=== PATIENT | male | born 1965 | race Caucasian/White ===

== ENCOUNTER 2017-11-28 12:32 | Inpatient (IN) | payer BC, MEDICAID ==
[2017-11-28] MEDS ORDERED: Sodium Chloride 0.9% 1,000 ML IV ONE ×2 (12:44→14:11)
[2017-11-28] MEDS ORDERED: Ondansetron 4 MG/2 ML SDV IVPUSH ONE (12:44)
--- NOTE | 2017-11-28 12:53 | EDM.PDOC ---
ED HPI GENERAL MEDICAL PROBLEM - General Stated Complaint: HIGH BLOOD SUGAR Time Seen by Provider: 11/28/17 12:32 Source of Information: Reports: Patient, EMS, Family History Limitations: Reports: Physical Impairment - History of Present Illness INITIAL COMMENTS - FREE TEXT/NARRATIVE: 51 y.o.w.m came to the ED by EMS after he felt dizzy and lightheaded at the clinic when he underwent an I&D at his left thumb. BS was above 600. Pt was nauseated and was transferred to the ed. Pt was never Dx'd with Diabetes. He is a poor historian and no family was present. Pt vomited in the ambulance, coming to the ED. BP was 119/70 pulse 100 Temp 36.9 RR 16 Pulse ox 98% on RA. Onset Date: 11/28/17 Onset Time: 05:00 Duration: Hour(s): Location: Reports: Upper Extremity, Left Quality: Reports: Burning Severity: Moderate Improves with: Reports: Rest Worsens with: Reports: Movement Context: Reports: Trauma (abscess left thumb, I&D'd in the clinic) Associated Symptoms: Reports: Confusion, Loss of Appetite, Malaise, Nausea/ Vomiting, Weakness - Related Data Allergies Allergy/AdvReac Type Severity Reaction Status Date / Time No Known Allergies Allergy Verified 11/28/17 12:58 Home Meds: Home Meds Ondansetron HCl [Zofran] 4 mg PO Q6H PRN 11/28/17 [History] Sulfamethoxazole/Trimethoprim [Bactrim Ds Tablet] 1 tab PO BID PRN 11/28/17 [ History] Past Medical History - Past Health History Medical/Surgical History: Denies Medical/Surgical History Social & Family History - Tobacco Use Smoking Status *Q: Current Every Day Smoker Years of Tobacco use: 10 - Recreational Drug Use Recreational Drug Use: No ED ROS GENERAL - Review of Systems Review Of Systems: Unable To Obtain ED EXAM, GENERAL - Physical Exam Exam: See Below Exam Limited By: Physical Impairment General Appearance: Alert, WD/WN, Moderate Distress Eye Exam: Bilateral Eye: Normal Inspection Ears: Normal External Exam Ear Exam: Bilateral Ear: Auricle Normal Nose: Normal Inspection Throat/Mouth: Normal Gums, No Airway Compromise, Other (dry mucosal membranes) Head: Atraumatic, Normocephalic Neck: Normal Inspection, Supple Respiratory/Chest: No Respiratory Distress, Lungs Clear Cardiovascular: Normal Peripheral Pulses Peripheral Pulses: 1+: Brachial (L) GI/Abdominal: Normal Bowel Sounds (Male) Exam: Deferred Rectal (Males) Exam: Deferred Back Exam: Normal Inspection, Full Range of Motion Extremities: Normal Inspection, Other (I&D left thumb at the clinic today) Neurological: Alert, CN II-XII Intact, Abnormal Gait (too week) Psychiatric: Normal Affect, Normal Mood Skin Exam: Warm, Dry, Other (left thumb surgery today) Lymphatic: No Adenopathy Course - Vital Signs Text/Narrative:: 51 y.o.w.m came to the ED by EMS after he felt dizzy and lightheaded at the clinic when he underwent an I&D at his left thumb. BS was above 600. Pt was nauseated and was transferred to the ed. Pt was never Dx'd with Diabetes. He is a poor historian and no family was present. Pt vomited in the ambulance, coming to the ED. BP was 119/70 pulse 100 Temp 36.9 RR 16 Pulse ox 98% on RA. PE: WNWD WM with nausea and vomiting, poor historian. S/P I&D left thumb Labs; WBC 22K pH 7.39 HCO2 8. Glc 589 BUN 29 Cr 1.1 Na 138 K 3.8 GFR 48 Lactic acid 2.9 GKC A1C 11.1 Impression: DKA, Dehydration, r thumb abscess (I&D'd today) Tx: Insulin, Abx, NS 2.20pm Consultation: Dr. Frost, Hospitalist: Accepted the pt for admission to ICU Plan; Admit to ICU Last Recorded V/S: Last Vital Signs Temp 36.8 C 11/29/17 00:00 Pulse 97 11/29/17 00:00 Resp 16 11/29/17 00:00 BP 118/74 11/29/17 00:00 Pulse Ox 100 11/29/17 00:00 - Orders/Labs/Meds Orders: Active Orders 24 hr Category Date Time Status Diabetes Education [RC] Click to Edit Care 11/28/17 14:02 Active Vital Signs [RC] Q4HR Care 11/28/17 14:02 Active CULTURE BLOOD [BC] Urgent Lab 11/28/17 14:20 Received CULTURE BLOOD [BC] Urgent Lab 11/28/17 14:50 Received Insulin Regular, Human [HumuLIN R] 100 unit Med 11/28/17 14:00 Active Sodium Chloride 0.9% [Normal Saline] 99 ml IV TITRATE Blood Culture x2 Reflex Set [OM.PC] Urgent Oth 11/28/17 14:10 Ordered Medication Orders Ceftriaxone Sodium (Rocephin) 1,000 mg IV Q24H AZIZA Last Admin: 11/28/17 20:46 Dose: 1,000 mg Insulin Human Regular 100 unit (/ Sodium Chloride) 100 mls @ 7.54 mls/hr IV TITRATE AZIZA; 0.1 UNITS/KG/HR PRN Reason: Protocol Last Titration: 11/28/17 21:22 Dose: 0.03 units/kg/hr, 3 mls/hr Titration: 11/28/17 15:46 Dose: 0.06 units/kg/hr, 5 mls/hr Titration: 11/28/17 15:10 Dose: 0.1 units/kg/hr, 7.54 mls/hr Admin: 11/28/17 14:52 Dose: 0.1 units/kg/hr, 11.33 mls/hr Potassium Chloride/Dextrose/Sod Cl (D5 1/2 Ns W/ 10 Meq/L Kcl) 1,000 mls @ 150 mls/hr IV ASDIRECTED AZIZA Last Admin: 11/28/17 22:43 Dose: 150 mls/hr Labs: Laboratory Tests 11/28/17 11/28/17 11/28/17 Range/Units 12:40 12:40 12:40 WBC 22.9 H (4.5-12.0) X10-3/uL RBC 5.33 (4.30-5.75) x10(6)uL Hgb 15.4 (11.5-15.5) g/dL Hct 45.4 (30.0-51.3) % MCV 85.3 (80-96) fL MCH 28.9 (27.7-33.6) pg MCHC 33.8 (32.2-35.4) g/dL RDW 12.5 (11.5-15.5) % Plt Count 198 (125-369) X10(3)uL MPV 11.1 H (7.4-10.4) fL Add Manual Diff Yes Neutrophils % (Manual) 91 H (46-82) % Band Neutrophils % 2 (0-6) % Lymphocytes % (Manual) 2 L (13-37) % Monocytes % (Manual) 5 (4-12) % POC VBG pH 7.14 L (7.31-7.41) POC VBG pCO2 18.1 L (41-51) mmHG POC VBG HCO3 6.2 L (23-28) mmol/L POC VBG Total CO2 7 L (24-29) mmol/L POC VBG Base Excess -23 L (-2-3) mmol/L Sodium 132 L (135-145) mmol/L Potassium 5.3 (3.5-5.3) mmol/L Chloride 93 L (100-110) mmol/L Carbon Dioxide 6 L* (21-32) mmol/L BUN 29 H (7-18) mg/dL Creatinine 1.9 H (0.70-1.30) mg/dL Est Cr Clr Drug Dosing TNP Estimated GFR (MDRD) 38 L (>60) BUN/Creatinine Ratio 15.3 (9-20) Glucose 713 H* (80-116) mg/dL Hemoglobin A1c (4.5-6.2) % Lactic Acid (0.4-2.2) mmol/L Calcium 9.9 (8.6-10.2) mg/dL Urine Ketones (NEGATIVE) mg/dL 11/28/17 11/28/17 11/28/17 Range/Units 13:00 13:00 13:45 WBC (4.5-12.0) X10-3/uL RBC (4.30-5.75) x10(6)uL Hgb (11.5-15.5) g/dL Hct (30.0-51.3) % MCV (80-96) fL MCH (27.7-33.6) pg MCHC (32.2-35.4) g/dL RDW (11.5-15.5) % Plt Count (125-369) X10(3)uL MPV (7.4-10.4) fL Add Manual Diff Neutrophils % (Manual) (46-82) % Band Neutrophils % (0-6) % Lymphocytes % (Manual) (13-37) % Monocytes % (Manual) (4-12) % POC VBG pH (7.31-7.41) POC VBG pCO2 (41-51) mmHG POC VBG HCO3 (23-28) mmol/L POC VBG Total CO2 (24-29) mmol/L POC VBG Base Excess (-2-3) mmol/L Sodium (135-145) mmol/L Potassium (3.5-5.3) mmol/L Chloride (100-110) mmol/L Carbon Dioxide (21-32) mmol/L BUN (7-18) mg/dL Creatinine (0.70-1.30) mg/dL Est Cr Clr Drug Dosing Estimated GFR (MDRD) (>60) BUN/Creatinine Ratio (9-20) Glucose (80-116) mg/dL Hemoglobin A1c 11.1 H (4.5-6.2) % Lactic Acid 2.9 H (0.4-2.2) mmol/L Calcium (8.6-10.2) mg/dL Urine Ketones 50 H (NEGATIVE) mg/dL Meds: Medications Generic Name Dose Route Start Last Admin Trade Name Freq PRN Reason Stop Dose Admin Ceftriaxone Sodium 1,000 mg 11/28/17 21:00 11/28/17 20:46 Rocephin IV 1,000 mg Q24H AZIZA Administration Insulin Human Regular 100 unit 100 mls @ 7.54 mls/hr 11/28/17 14:00 11/28/17 21:22 / Sodium Chloride IV 0.03 units/kg/hr TITRATE AZIZA 3 mls/hr Protocol Titration 0.1 UNITS/KG/HR Potassium Chloride/Dextrose/Sod Cl 1,000 mls @ 150 mls/hr 11/28/17 22:30 11/14 22:43 D5 1/2 Ns W/ 10 Meq/L Kcl IV 150 mls/hr ASDIRECTED AZIZA Administration Discontinued Medications Generic Name Dose Route Start Last Admin Trade Name Freq PRN Reason Stop Dose Admin Sodium Chloride 1,000 mls @ 999 mls/hr 11/28/17 12:44 11/28/17 13:12 Normal Saline IV 11/28/17 13:44 999 mls/hr .BOLUS ONE Administration Sodium Chloride 1,000 mls @ 999 mls/hr 11/28/17 14:11 11/28/17 14:17 Normal Saline IV 11/28/17 15:11 999 mls/hr .BOLUS ONE Administration Sodium Chloride 1,000 mls @ 250 mls/hr 11/28/17 14:15 11/28/17 15:20 Normal Saline IV 125 mls/hr ASDIRECTED AZIZA Administration Sodium Chloride 1,000 mls @ 250 mls/hr 11/28/17 15:51 Normal Saline IV ASDIRECTED AZIZA Ceftriaxone Sodium 1,000 mg/ 50 mls @ 100 mls/hr 11/28/17 19:30 Sodium Chloride IV Q24H AZIZA Sodium Chloride 1,000 mls @ 200 mls/hr 11/28/17 19:45 11/28/17 19:55 Normal Saline IV 200 mls/hr ASDIRECTED AZIZA Administration Insulin Human Regular 10 unit 11/28/17 13:53 11/28/17 14:06 Humulin R IVPUSH 11/28/17 13:54 10 units ONETIME STA Administration Protocol Ondansetron HCl 8 mg 11/28/17 12:44 11/28/17 13:15 Zofran IVPUSH 11/28/17 12:45 8 mg ONETIME ONE Administration Departure - Departure Time of Disposition: 20:00 Disposition: Admitted As Inpatient 67 Condition: Fair Clinical Impression: DKA (diabetic ketoacidoses) - Discharge Information - My Orders Last 24 Hours: My Active Orders 11/28/17 14:00 Insulin Regular, Human [HumuLIN R] 100 unit Sodium Chloride 0.9% [Normal Saline] 99 ml IV TITRATE 11/28/17 14:02 Diabetes Education [RC] Click to Edit Vital Signs [RC] Q4HR 11/28/17 14:10 Blood Culture x2 Reflex Set [OM.PC] Urgent 11/28/17 14:20 CULTURE BLOOD [BC] Urgent 11/28/17 14:50 CULTURE BLOOD [BC] Urgent - Assessment/Plan Last 24 Hours: My Active Orders 11/28/17 14:00 Insulin Regular, Human [HumuLIN R] 100 unit Sodium Chloride 0.9% [Normal Saline] 99 ml IV TITRATE 11/28/17 14:02 Diabetes Education [RC] Click to Edit Vital Signs [RC] Q4HR 11/28/17 14:10 Blood Culture x2 Reflex Set [OM.PC] Urgent 11/28/17 14:20 CULTURE BLOOD [BC] Urgent 11/28/17 14:50 CULTURE BLOOD [BC] Urgent
[2017-11-28] MEDS ORDERED: Insulin Regular, Human 100 Units/ML 3 ML Vial IVPUSH STA (13:53)
[2017-11-28] MEDS ORDERED: Sodium Chloride 0.9% 1,000 ML IV SCH ×3 (14:15→19:45)
[2017-11-28] MEDS ORDERED: cefTRIAXone 1,000 MG in Sodium Chloride 0.9% 50 ML IV SCH (19:30)
[2017-11-28] MEDS: cefTRIAXone 1,000 MG VIAL IV SCH (20:46)
[2017-11-28] MEDS: D5 1/2 NS w/ 10 mEq/L KCl 1,000 ML IV SCH (22:43)
[2017-11-29] MEDS: D5 1/2 NS w/ 10 mEq/L KCl 1,000 ML IV SCH (05:29)
[2017-11-29] MEDS ORDERED: D5 1/2 NS w/ 20 mEq/L KCl 1,000 ML IV SCH (06:00)
--- NOTE | 2017-11-29 09:03 | PCM.PN ---
- General Info Date of Service: 11/29/17 Admission Dx/Problem (Free Text): Patient was admitted because of DKA. Is never been no diabetes that presents to the clinic for incision and drainage of an abscess in the left thumb. While there,he complained of recent weight loss, polyuria,vomiting nausea dizziness. Was admitted with a high blood sugar very high anion gap and a pH of 7.14 but patient was alert Subjective Update: Overnight patient has done well he's been on an insulin. He denies nausea vomiting or headache. He complains of decreased hearing. - Review of Systems Pulmonary: Reports: No Symptoms Genitourinary: Reports: No Symptoms Musculoskeletal: Reports: No Symptoms - Patient Data Vitals - Most Recent: Last Vital Signs Temp 99.5 F 11/29/17 08:00 Pulse 93 11/29/17 08:00 Resp 18 11/29/17 08:00 BP 124/73 11/29/17 08:00 Pulse Ox 95 11/29/17 08:00 Weight - Most Recent: 79.968 kg I&O - Last 24 Hours: Intake & Output 11/28/17 11/29/17 11/29/17 22:59 06:59 14:59 Intake Total 2254 2426 Output Total 850 450 Balance 1404 1976 Lab Results Last 24 Hours: Laboratory Results - last 24 hr 11/28/17 11/28/17 11/28/17 Range/Units 14:20 15:31 16:20 ABG pH (7.35-7.45) ABG pCO2 (35-45) mmHg ABG pO2 (83-108) mmHg ABG HCO3 (22-26) mmol/L ABG O2 Saturation (96-97) % ABG Base Excess (-2-2) Thomas Test O2 Delivery Device Sodium 139 143 (135-145) mmol/L Potassium 4.5 3.9 (3.5-5.3) mmol/L Chloride 100 D 107 D (100-110) mmol/L Carbon Dioxide 8 L* 12 L (21-32) mmol/L BUN 29 H 26 H (7-18) mg/dL Creatinine 1.7 H 1.5 H (0.70-1.30) mg/dL Est Cr Clr Drug Dosing 55.50 62.90 mL/min Estimated GFR (MDRD) 43 L 50 L (>60) BUN/Creatinine Ratio 17.1 17.3 (9-20) Glucose 572 H* D 341 H D (80-116) mg/dL POC Glucose 335 H (80-116) mg/dL Calcium 9.3 8.9 (8.6-10.2) mg/dL Phosphorus 4.0 (2.6-4.6) mg/dL Magnesium 2.6 H (1.8-2.5) mg/dL Urine Opiates Screen (NEGATIVE) Ur Oxycodone Screen (NEGATIVE) Ur Propoxyphene Screen (NEGATIVE) Ur Barbituates Screen (NEGATIVE) Ur Tricyclics Screen (NEGATIVE) Ur Phencyclidine Scrn (NEGATIVE) Ur Amphetamine Screen (NEGATIVE) Urine MDMA Screen (NEGATIVE) U Benzodiazepines Scrn (NEGATIVE) U Cocaine Metab Screen (NEGATIVE) U Marijuana (THC) Screen (NEGATIVE) 11/28/17 11/28/17 11/28/17 Range/Units 16:23 17:49 19:01 ABG pH (7.35-7.45) ABG pCO2 (35-45) mmHg ABG pO2 (83-108) mmHg ABG HCO3 (22-26) mmol/L ABG O2 Saturation (96-97) % ABG Base Excess (-2-2) Thomas Test O2 Delivery Device Sodium (135-145) mmol/L Potassium (3.5-5.3) mmol/L Chloride (100-110) mmol/L Carbon Dioxide (21-32) mmol/L BUN (7-18) mg/dL Creatinine (0.70-1.30) mg/dL Est Cr Clr Drug Dosing mL/min Estimated GFR (MDRD) (>60) BUN/Creatinine Ratio (9-20) Glucose (80-116) mg/dL POC Glucose 335 H 239 H D 219 H (80-116) mg/dL Calcium (8.6-10.2) mg/dL Phosphorus (2.6-4.6) mg/dL Magnesium (1.8-2.5) mg/dL Urine Opiates Screen (NEGATIVE) Ur Oxycodone Screen (NEGATIVE) Ur Propoxyphene Screen (NEGATIVE) Ur Barbituates Screen (NEGATIVE) Ur Tricyclics Screen (NEGATIVE) Ur Phencyclidine Scrn (NEGATIVE) Ur Amphetamine Screen (NEGATIVE) Urine MDMA Screen (NEGATIVE) U Benzodiazepines Scrn (NEGATIVE) U Cocaine Metab Screen (NEGATIVE) U Marijuana (THC) Screen (NEGATIVE) 11/28/17 11/28/17 11/28/17 Range/Units 20:05 20:10 20:17 ABG pH 7.39 (7.35-7.45) ABG pCO2 26 L (35-45) mmHg ABG pO2 72 L (83-108) mmHg ABG HCO3 15 L (22-26) mmol/L ABG O2 Saturation 95 L (96-97) % ABG Base Excess -7.7 L (-2-2) Thomas Test Passed O2 Delivery Device Room air Sodium 146 H (135-145) mmol/L Potassium 3.8 (3.5-5.3) mmol/L Chloride 112 H D (100-110) mmol/L Carbon Dioxide 20 L (21-32) mmol/L BUN 23 H (7-18) mg/dL Creatinine 1.4 H (0.70-1.30) mg/dL Est Cr Clr Drug Dosing 67.33 mL/min Estimated GFR (MDRD) 54 L (>60) BUN/Creatinine Ratio 16.4 (9-20) Glucose 208 H D (80-116) mg/dL POC Glucose 189 H (80-116) mg/dL Calcium 8.8 (8.6-10.2) mg/dL Phosphorus (2.6-4.6) mg/dL Magnesium (1.8-2.5) mg/dL Urine Opiates Screen (NEGATIVE) Ur Oxycodone Screen (NEGATIVE) Ur Propoxyphene Screen (NEGATIVE) Ur Barbituates Screen (NEGATIVE) Ur Tricyclics Screen (NEGATIVE) Ur Phencyclidine Scrn (NEGATIVE) Ur Amphetamine Screen (NEGATIVE) Urine MDMA Screen (NEGATIVE) U Benzodiazepines Scrn (NEGATIVE) U Cocaine Metab Screen (NEGATIVE) U Marijuana (THC) Screen (NEGATIVE) 11/28/17 11/28/17 11/28/17 Range/Units 21:15 22:16 22:52 ABG pH (7.35-7.45) ABG pCO2 (35-45) mmHg ABG pO2 (83-108) mmHg ABG HCO3 (22-26) mmol/L ABG O2 Saturation (96-97) % ABG Base Excess (-2-2) Thomas Test O2 Delivery Device Sodium (135-145) mmol/L Potassium (3.5-5.3) mmol/L Chloride (100-110) mmol/L Carbon Dioxide (21-32) mmol/L BUN (7-18) mg/dL Creatinine (0.70-1.30) mg/dL Est Cr Clr Drug Dosing mL/min Estimated GFR (MDRD) (>60) BUN/Creatinine Ratio (9-20) Glucose (80-116) mg/dL POC Glucose 167 H 131 H (80-116) mg/dL Calcium (8.6-10.2) mg/dL Phosphorus (2.6-4.6) mg/dL Magnesium (1.8-2.5) mg/dL Urine Opiates Screen Negative (NEGATIVE) Ur Oxycodone Screen Negative (NEGATIVE) Ur Propoxyphene Screen Negative (NEGATIVE) Ur Barbituates Screen Negative (NEGATIVE) Ur Tricyclics Screen Negative (NEGATIVE) Ur Phencyclidine Scrn Negative (NEGATIVE) Ur Amphetamine Screen Negative (NEGATIVE) Urine MDMA Screen Negative (NEGATIVE) U Benzodiazepines Scrn Negative (NEGATIVE) U Cocaine Metab Screen Negative (NEGATIVE) U Marijuana (THC) Screen Negative (NEGATIVE) 11/28/17 11/29/17 11/29/17 Range/Units 23:14 00:05 04:05 ABG pH (7.35-7.45) ABG pCO2 (35-45) mmHg ABG pO2 (83-108) mmHg ABG HCO3 (22-26) mmol/L ABG O2 Saturation (96-97) % ABG Base Excess (-2-2) Thomas Test O2 Delivery Device Sodium 146 H 142 (135-145) mmol/L Potassium 3.8 3.4 L (3.5-5.3) mmol/L Chloride 114 H 110 (100-110) mmol/L Carbon Dioxide 20 L 21 (21-32) mmol/L BUN 20 H 19 H (7-18) mg/dL Creatinine 1.2 1.1 (0.70-1.30) mg/dL Est Cr Clr Drug Dosing 78.55 85.69 mL/min Estimated GFR (MDRD) > 60 > 60 (>60) BUN/Creatinine Ratio 16.7 17.3 (9-20) Glucose 164 H 182 H (80-116) mg/dL POC Glucose 145 H (80-116) mg/dL Calcium 8.6 8.5 L (8.6-10.2) mg/dL Phosphorus (2.6-4.6) mg/dL Magnesium (1.8-2.5) mg/dL Urine Opiates Screen (NEGATIVE) Ur Oxycodone Screen (NEGATIVE) Ur Propoxyphene Screen (NEGATIVE) Ur Barbituates Screen (NEGATIVE) Ur Tricyclics Screen (NEGATIVE) Ur Phencyclidine Scrn (NEGATIVE) Ur Amphetamine Screen (NEGATIVE) Urine MDMA Screen (NEGATIVE) U Benzodiazepines Scrn (NEGATIVE) U Cocaine Metab Screen (NEGATIVE) U Marijuana (THC) Screen (NEGATIVE) 11/29/17 Range/Units 08:00 ABG pH (7.35-7.45) ABG pCO2 (35-45) mmHg ABG pO2 (83-108) mmHg ABG HCO3 (22-26) mmol/L ABG O2 Saturation (96-97) % ABG Base Excess (-2-2) Thomas Test O2 Delivery Device Sodium 140 (135-145) mmol/L Potassium 3.3 L (3.5-5.3) mmol/L Chloride 108 (100-110) mmol/L Carbon Dioxide 21 (21-32) mmol/L BUN 17 (7-18) mg/dL Creatinine 1.0 (0.70-1.30) mg/dL Est Cr Clr Drug Dosing 97.00 mL/min Estimated GFR (MDRD) > 60 (>60) BUN/Creatinine Ratio 17.0 (9-20) Glucose 182 H (80-116) mg/dL POC Glucose (80-116) mg/dL Calcium 8.3 L (8.6-10.2) mg/dL Phosphorus 1.6 L (2.6-4.6) mg/dL Magnesium 1.7 L (1.8-2.5) mg/dL Urine Opiates Screen (NEGATIVE) Ur Oxycodone Screen (NEGATIVE) Ur Propoxyphene Screen (NEGATIVE) Ur Barbituates Screen (NEGATIVE) Ur Tricyclics Screen (NEGATIVE) Ur Phencyclidine Scrn (NEGATIVE) Ur Amphetamine Screen (NEGATIVE) Urine MDMA Screen (NEGATIVE) U Benzodiazepines Scrn (NEGATIVE) U Cocaine Metab Screen (NEGATIVE) U Marijuana (THC) Screen (NEGATIVE) Med Orders - Current: Current Medications Ceftriaxone Sodium (Rocephin) 1,000 mg IV Q24H AZIZA Last Admin: 11/28/17 20:46 Dose: 1,000 mg Insulin Aspart (Novolog) 0 unit SUBCUT TIDMEALS AZIZA PRN Reason: Protocol Discontinued Medications Sodium Chloride (Normal Saline) 1,000 mls @ 999 mls/hr IV .BOLUS ONE Stop: 11/28/17 13:44 Last Admin: 11/28/17 13:12 Dose: 999 mls/hr Insulin Human Regular 100 unit (/ Sodium Chloride) 100 mls @ 7.54 mls/hr IV TITRATE AZIZA; 0.1 UNITS/KG/HR PRN Reason: Protocol Last Titration: 11/28/17 21:22 Dose: 0.03 units/kg/hr, 3 mls/hr Sodium Chloride (Normal Saline) 1,000 mls @ 999 mls/hr IV .BOLUS ONE Stop: 11/28/17 15:11 Last Admin: 11/28/17 14:17 Dose: 999 mls/hr Sodium Chloride (Normal Saline) 1,000 mls @ 250 mls/hr IV ASDIRECTED AZIZA Last Admin: 11/28/17 15:20 Dose: 125 mls/hr Sodium Chloride (Normal Saline) 1,000 mls @ 250 mls/hr IV ASDIRECTED AZIZA Ceftriaxone Sodium 1,000 mg/ (Sodium Chloride) 50 mls @ 100 mls/hr IV Q24H AZIZA Sodium Chloride (Normal Saline) 1,000 mls @ 200 mls/hr IV ASDIRECTED AZIZA Last Admin: 11/28/17 19:55 Dose: 200 mls/hr Potassium Chloride/Dextrose/Sod Cl (D5 1/2 Ns W/ 10 Meq/L Kcl) 1,000 mls @ 150 mls/hr IV ASDIRECTED AZIZA Last Admin: 11/29/17 05:29 Dose: 150 mls/hr Potassium Chloride/Dextrose/Sod Cl (D5 1/2 Ns W/ 20 Meq/L Kcl) 1,000 mls @ 150 mls/hr IV ASDIRECTED AZIZA Last Admin: 11/29/17 06:01 Dose: 150 mls/hr Insulin Human Regular (Humulin R) 10 unit IVPUSH ONETIME STA PRN Reason: Protocol Stop: 11/28/17 13:54 Last Admin: 11/28/17 14:06 Dose: 10 units Ondansetron HCl (Zofran) 8 mg IVPUSH ONETIME ONE Stop: 11/28/17 12:45 Last Admin: 11/28/17 13:15 Dose: 8 mg - Exam Quality Assessment: No: Supplemental Oxygen General: Alert, Oriented HEENT: Pupils Equal, Pupils Reactive, EOMI, Mucous Membr. Moist/[place] Neck: Supple Lungs: Clear to Auscultation, Normal Respiratory Effort Cardiovascular: Regular Rate, Regular Rhythm Extremities: Other (Left thumb dressed) - Problem List & Annotations (1) Abscess SNOMED Code(s): 832173937 Code(s): L02.91 - CUTANEOUS ABSCESS, UNSPECIFIED Status: Acute Current Visit: Yes (2) DKA (diabetic ketoacidoses) SNOMED Code(s): 687328578 Code(s): E13.10 - OTH DIABETES MELLITUS WITH KETOACIDOSIS WITHOUT COMA Status: Acute Current Visit: Yes Qualifiers: Diabetes mellitus type: other specified (including JOANNA) Diabetes mellitus complication detail: without coma Qualified Code(s): E13.10 - Other specified diabetes mellitus with ketoacidosis without coma - Problem List Review Problem List Initiated/Reviewed/Updated: Yes - My Orders Last 24 Hours: My Active Orders 11/29/17 08:47 Blood Glucose Check, Bedside [RC] WITHMEALSANDBED 11/29/17 12:00 Insulin Aspart [NovoLOG] See Protocol SUBCUT TIDMEALS 11/29/17 Lunch Consistent Carbohydrate Diet [DIET] 11/30/17 05:11 BASIC METABOLIC PANEL,BMP [CHEM] AM LIPID PANEL [CHEM] AM - Plan Plan:: I will advance his diet, to diabetic. 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 I will keep him today but will moving from ICU to regular bed, start sliding scale of insulin, and Lantus at night, and discontinue IV fluids and insulin drip. A lipid profile basic metabolic profile andC Peptide & DAVIE antibodies will be ordered for tomorrow morning.
--- NOTE | 2017-11-29 09:56 | HP ---
ADMISSION DATE: 11/28/2017 REASON FOR VISIT: Diabetic ketoacidosis. HISTORY OF PRESENT ILLNESS: Tino Carcamo is a 51-year-old male, from [place], [place], who was transferred by ambulance to [facility]. He had been at the [facility] earlier today with troublesome hand laceration left thumb, sustained 2 days prior. When seen there, he was evaluated, incision and drainage was obtained. Cultures were performed and he was discharged on Bactrim DS one p.o. b.i.d. Physical symptoms complicated, including excessive thirst, excessive urination, 20 pounds weight loss, and progressive decline in intellectual well-being, dictated observation for diabetes. Sugar was markedly elevated and he was transferred to [facility]. Evaluated and admitted to the hospital for treatment. HOME MEDICATIONS: Under review. PAST MEDICAL HISTORY: By his report, though difficult to be certain. No operative procedures, hospitalizations, unusual childhood diseases, major injuries, or fractures. SOCIAL HISTORY: He is single, never , no children. 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 Alcohol, difficult to ascertain. Smokes daily, denies illicit drug use. REVIEW OF SYSTEMS: Review of systems painfully difficult due to lack of arousability. The symptoms above are clearly defined. Weight loss, excessive thirst, excess urination, some vague abdominal pain, nausea. Bowels have been fine. Bladder has been fine. No blood in urine. No blood in his stool. PHYSICAL EXAMINATION: VITAL SIGNS: Stable and documented. HEENT: Reveal funduscopic benign. Bright TMs. Clear nasal discharge. Mouth and oropharynx clear. NECK: Benign. Thyroid small. CHEST: Clear in all lung mcwilliams. No adventitious sounds. HEART: Regular. No ectopy or murmur. ABDOMEN: Benign. No surgical scars. : Normal male genitalia. Testes normal size, shape, and contour. RECTAL: Deferred. EXTREMITIES: Well perfused. LABORATORY DATA: pH 7.12, marked hyperglycemia, moderate hyperkalemia, moderate hyponatremia. Chest x-ray, unremarkable. Laboratory studies reviewed. ASSESSMENT: Diabetic ketoacidosis, new onset. PLAN: Urgent intervention. ICU care. Complementary care and well-being, bolus of fluids, adequate hydration. Normalization of sugars and observation. Electrolyte imbalances all-time inappropriate, we will follow protocol accordingly. /[id number] SILVANO/ISIDRO
[2017-11-29] MEDS: Insulin Aspart 100 Units/ML 3 ML Pen SUBCUT SCH ×3 (11:47→20:31)
[2017-11-29] MEDS: cefTRIAXone 1,000 MG VIAL IV SCH (20:36)
[2017-11-29] MEDS ORDERED: Insulin Detemir 100 Units/ML 3 ML Pen SUBCUT ONE (21:00)
[2017-11-30] MEDS: Insulin Aspart 100 Units/ML 3 ML Pen SUBCUT SCH ×4 (07:11→21:55)
[2017-11-30] MEDS ORDERED: Bisacodyl 5 MG Tab PO PRN (08:03)
--- NOTE | 2017-11-30 09:45 | PCM.PN ---
- General Info Date of Service: 11/30/17 Subjective Update: Patient slept well, still complains of left wrist and thumb pain. But no fever chills. Functional Status: Reports: Tolerating Diet - Review of Systems General: Reports: No Symptoms HEENT: Reports: No Symptoms Pulmonary: Reports: No Symptoms Cardiovascular: Reports: No Symptoms Musculoskeletal: Reports: Hand Pain - Patient Data Vitals - Most Recent: Last Vital Signs Temp 99.7 F 11/30/17 07:55 Pulse 96 11/30/17 07:55 Resp 16 11/30/17 07:55 BP 124/54 L 11/30/17 07:55 Pulse Ox 95 11/30/17 07:55 Weight - Most Recent: 79.832 kg I&O - Last 24 Hours: Intake & Output 11/29/17 11/30/17 11/30/17 22:59 06:59 14:59 Intake Total 940 550 Output Total 650 300 Balance 290 250 Lab Results Last 24 Hours: Laboratory Results - last 24 hr 11/29/17 11/29/17 11/29/17 Range/Units 11:30 17:24 20:27 Sodium (135-145) mmol/L Potassium (3.5-5.3) mmol/L Chloride (100-110) mmol/L Carbon Dioxide (21-32) mmol/L BUN (7-18) mg/dL Creatinine (0.70-1.30) mg/dL Est Cr Clr Drug Dosing mL/min Estimated GFR (MDRD) (>60) BUN/Creatinine Ratio (9-20) Glucose (80-116) mg/dL POC Glucose 274 H D 276 H 359 H D (80-116) mg/dL Calcium (8.6-10.2) mg/dL Triglycerides (15-150) mg/dL Cholesterol (50-200) mg/dL LDL Cholesterol Direct (60-130) mg/dL HDL Cholesterol (40-75) mg/dL Cholesterol/HDL Ratio (0-5) 11/30/17 Range/Units 06:00 Sodium 141 (135-145) mmol/L Potassium 3.0 L (3.5-5.3) mmol/L Chloride 106 (100-110) mmol/L Carbon Dioxide 24 (21-32) mmol/L BUN 11 (7-18) mg/dL Creatinine 0.8 (0.70-1.30) mg/dL Est Cr Clr Drug Dosing 121.25 mL/min Estimated GFR (MDRD) > 60 (>60) BUN/Creatinine Ratio 13.8 (9-20) Glucose 157 H (80-116) mg/dL POC Glucose (80-116) mg/dL Calcium 8.3 L (8.6-10.2) mg/dL Triglycerides 87 (15-150) mg/dL Cholesterol 122 (50-200) mg/dL LDL Cholesterol Direct 68 (60-130) mg/dL HDL Cholesterol 40 (40-75) mg/dL Cholesterol/HDL Ratio 3.1 (0-5) Sachin Results Last 24 Hours: Microbiology 11/28/17 14:50 Aerobic Blood Culture - Preliminary Blood - Venous - Lab Draw Unidentified Organism Anaerobic Blood Culture - Preliminary NO GROWTH AFTER 1 DAY 11/28/17 14:20 Aerobic Blood Culture - Preliminary Blood - Venous NO GROWTH AFTER 1 DAY Anaerobic Blood Culture - Preliminary NO GROWTH AFTER 1 DAY Med Orders - Current: Current Medications Bisacodyl (Dulcolax) 5 mg PO DAILY PRN PRN Reason: Constipation Ceftriaxone Sodium (Rocephin) 1,000 mg IV Q24H [facility] Last Admin: 11/29/17 20:36 Dose: 1,000 mg Vancomycin HCl 1,000 mg/ (Sodium Chloride) 250 mls @ 167 mls/hr IV Q24H [facility] Insulin Aspart (Novolog) 0 unit SUBCUT QIDACANDBED [facility] PRN Reason: Protocol Last Admin: 11/30/17 07:11 Dose: 3 units Discontinued Medications Sodium Chloride (Normal Saline) 1,000 mls @ 999 mls/hr IV .BOLUS ONE Stop: 11/28/17 13:44 Last Admin: 11/28/17 13:12 Dose: 999 mls/hr Insulin Human Regular 100 unit (/ Sodium Chloride) 100 mls @ 7.54 mls/hr IV TITRATE [facility]; 0.1 UNITS/KG/HR PRN Reason: Protocol Last Titration: 11/28/17 21:22 Dose: 0.03 units/kg/hr, 3 mls/hr Sodium Chloride (Normal Saline) 1,000 mls @ 999 mls/hr IV .BOLUS ONE Stop: 11/28/17 15:11 Last Admin: 11/28/17 14:17 Dose: 999 mls/hr Sodium Chloride (Normal Saline) 1,000 mls @ 250 mls/hr IV ASDIRECTED [facility] Last Admin: 11/28/17 15:20 Dose: 125 mls/hr Sodium Chloride (Normal Saline) 1,000 mls @ 250 mls/hr IV ASDIRECTED [facility] Ceftriaxone Sodium 1,000 mg/ (Sodium Chloride) 50 mls @ 100 mls/hr IV Q24H [facility] Sodium Chloride (Normal Saline) 1,000 mls @ 200 mls/hr IV ASDIRECTED [facility] Last Admin: 11/28/17 19:55 Dose: 200 mls/hr Potassium Chloride/Dextrose/Sod Cl (D5 1/2 Ns W/ 10 Meq/L Kcl) 1,000 mls @ 150 mls/hr IV ASDIRECTED [facility] Last Admin: 11/29/17 05:29 Dose: 150 mls/hr Potassium Chloride/Dextrose/Sod Cl (D5 1/2 Ns W/ 20 Meq/L Kcl) 1,000 mls @ 150 mls/hr IV ASDIRECTED [facility] Last Admin: 11/29/17 06:01 Dose: 150 mls/hr Insulin Detemir (Levemir) 20 unit SUBCUT ONETIME ONE Stop: 11/29/17 21:01 Last Admin: 11/29/17 20:29 Dose: 20 units Insulin Human Regular (Humulin R) 10 unit IVPUSH ONETIME STA PRN Reason: Protocol Stop: 11/28/17 13:54 Last Admin: 11/28/17 14:06 Dose: 10 units Ondansetron HCl (Zofran) 8 mg IVPUSH ONETIME ONE Stop: 11/28/17 12:45 Last Admin: 11/28/17 13:15 Dose: 8 mg - Exam General: Alert HEENT: Pupils Equal Neck: Supple Lungs: Clear to Auscultation Cardiovascular: Regular Rate Extremities: Redness, Other (The first metacarpal of the left is markedly swollen tender to palpation with a large effusion.) - Problem List & Annotations (1) Abscess SNOMED Code(s): 504548210 Code(s): L02.91 - CUTANEOUS ABSCESS, UNSPECIFIED Status: Acute Current Visit: Yes (2) DKA (diabetic ketoacidoses) SNOMED Code(s): 129851013 Code(s): E13.10 - OTH DIABETES MELLITUS WITH KETOACIDOSIS WITHOUT COMA Status: Acute Current Visit: Yes Qualifiers: Diabetes mellitus type: other specified (including JOANNA) Diabetes mellitus complication detail: without coma Qualified Code(s): E13.10 - Other specified diabetes mellitus with ketoacidosis without coma (3) Bacteremia SNOMED Code(s): 1465284 Code(s): R78.81 - BACTEREMIA Status: Acute Current Visit: Yes - Problem List Review Problem List Initiated/Reviewed/Updated: Yes - My Orders Last 24 Hours: My Active Orders 11/29/17 08:47 Blood Glucose Check, Bedside [RC] WITHMEALSANDBED 11/29/17 11:30 Insulin Aspart [NovoLOG] See Protocol SUBCUT QIDACANDBED 11/29/17 Lunch Consistent Carbohydrate Diet [DIET] 11/30/17 06:34 C-REACTIVE PROTEIN [CHEM] Routine ESR [SEDIMENTATION RATE MANUAL] [HEME] Routine URIC ACID [CHEM] Routine 11/30/17 08:03 Bisacodyl [Dulcolax] 5 mg PO DAILY PRN 11/30/17 09:08 Upr Ext Joint w wo Cont Lt [MR] Routine 11/30/17 10:00 Vancomycin 1,000 mg Sodium Chloride 0.9% [Normal Saline] 250 ml IV Q24H 12/01/17 05:11 CBC WITH AUTO DIFF [HEME] AM COMPREHENSIVE METABOLIC PN,CMP [CHEM] AM - Plan Plan:: When his sugars have normalized, and is out of DKA, his left hand and wrist pain seems to be worsened swelling is worse. He has decreased range of motion of the first metacarpal and I'm suspicious of septic arthritis. This especially due to also blood cultures coming back positive- unidentified organism. My plan is to add vancomycin, obtain a CBC and CRP ESR and uric acid as well as an MRI of the left wrist and thumb.
[2017-11-30] MEDS ORDERED: Gadoteridol 279.3 MG/ML 20 ML SDV IV SCH (10:45)
[2017-11-30] MEDS: VANCOMYCIN IV SCH ×2 (11:07→22:21)
[2017-11-30] MEDS: SODIUM CHLORIDE 0.45% IV SCH ×2 (11:07→22:21)
[2017-11-30] MEDS: Sodium Chloride 0.9% 10 ML Syringe FLUSH PRN ×2 (21:55→23:58)
[2017-11-30] MEDS: cefTRIAXone 1,000 MG VIAL IV SCH (21:55)
[2017-11-30] MEDS ORDERED: Insulin Detemir 100 Units/ML 3 ML Pen SUBCUT SCH (22:00)
[2017-11-30] MEDS ORDERED: Insulin Aspart 100 Units/ML 3 ML Pen SUBCUT ONE (22:02)
--- NOTE | 2017-12-01 04:39 | PCM.PN ---
- General Info Date of Service: 12/01/17 Functional Status: Reports: Pain Controlled - Review of Systems General: Reports: No Symptoms HEENT: Reports: No Symptoms Pulmonary: Reports: No Symptoms Cardiovascular: Reports: No Symptoms Gastrointestinal: Reports: No Symptoms - Patient Data Vitals - Most Recent: Last Vital Signs Temp 99.1 F 12/01/17 03:22 Pulse 89 12/01/17 03:22 Resp 18 12/01/17 03:22 BP 104/67 12/01/17 03:22 Pulse Ox 94 L 12/01/17 03:22 Weight - Most Recent: 81.193 kg I&O - Last 24 Hours: Intake & Output 11/30/17 11/30/17 12/01/17 14:59 22:59 06:59 Intake Total 750 250 0 Output Total 700 Balance 50 250 0 Lab Results Last 24 Hours: Laboratory Results - last 24 hr 11/30/17 11/30/17 11/30/17 Range/Units 06:00 06:34 06:34 ESR 40 H (0-15) mm/hr Sodium 141 (135-145) mmol/L Potassium 3.0 L (3.5-5.3) mmol/L Chloride 106 (100-110) mmol/L Carbon Dioxide 24 (21-32) mmol/L BUN 11 (7-18) mg/dL Creatinine 0.8 (0.70-1.30) mg/dL Est Cr Clr Drug Dosing 121.25 mL/min Estimated GFR (MDRD) > 60 (>60) BUN/Creatinine Ratio 13.8 (9-20) Glucose 157 H (80-116) mg/dL POC Glucose (80-116) mg/dL Uric Acid (2.6-6.0) mg/dL Calcium 8.3 L (8.6-10.2) mg/dL C-Reactive Protein 11.6 H* (0.5-0.9) mg/dL Triglycerides 87 (15-150) mg/dL Cholesterol 122 (50-200) mg/dL LDL Cholesterol Direct 68 (60-130) mg/dL HDL Cholesterol 40 (40-75) mg/dL Cholesterol/HDL Ratio 3.1 (0-5) 11/30/17 11/30/17 11/30/17 Range/Units 06:34 11:27 17:12 ESR (0-15) mm/hr Sodium (135-145) mmol/L Potassium (3.5-5.3) mmol/L Chloride (100-110) mmol/L Carbon Dioxide (21-32) mmol/L BUN (7-18) mg/dL Creatinine (0.70-1.30) mg/dL Est Cr Clr Drug Dosing mL/min Estimated GFR (MDRD) (>60) BUN/Creatinine Ratio (9-20) Glucose (80-116) mg/dL POC Glucose 222 H D 331 H D (80-116) mg/dL Uric Acid 2.7 (2.6-6.0) mg/dL Calcium (8.6-10.2) mg/dL C-Reactive Protein (0.5-0.9) mg/dL Triglycerides (15-150) mg/dL Cholesterol (50-200) mg/dL LDL Cholesterol Direct (60-130) mg/dL HDL Cholesterol (40-75) mg/dL Cholesterol/HDL Ratio (0-5) 11/30/17 11/30/17 Range/Units 21:07 21:15 ESR (0-15) mm/hr Sodium (135-145) mmol/L Potassium (3.5-5.3) mmol/L Chloride (100-110) mmol/L Carbon Dioxide (21-32) mmol/L BUN (7-18) mg/dL Creatinine (0.70-1.30) mg/dL Est Cr Clr Drug Dosing mL/min Estimated GFR (MDRD) (>60) BUN/Creatinine Ratio (9-20) Glucose 341 H D (80-116) mg/dL POC Glucose 476 H* D (80-116) mg/dL Uric Acid (2.6-6.0) mg/dL Calcium (8.6-10.2) mg/dL C-Reactive Protein (0.5-0.9) mg/dL Triglycerides (15-150) mg/dL Cholesterol (50-200) mg/dL LDL Cholesterol Direct (60-130) mg/dL HDL Cholesterol (40-75) mg/dL Cholesterol/HDL Ratio (0-5) Sachin Results Last 24 Hours: Microbiology 11/28/17 14:50 Aerobic Blood Culture - Preliminary Blood - Venous - Lab Draw Gram Positive Cocci Anaerobic Blood Culture - Preliminary NO GROWTH AFTER 2 DAYS 11/28/17 14:20 Aerobic Blood Culture - Preliminary Blood - Venous NO GROWTH AFTER 2 DAYS Anaerobic Blood Culture - Preliminary NO GROWTH AFTER 2 DAYS Med Orders - Current: Current Medications Bisacodyl (Dulcolax) 5 mg PO DAILY PRN PRN Reason: Constipation Last Admin: 12/01/17 00:18 Dose: 5 mg Ceftriaxone Sodium (Rocephin) 1,000 mg IV Q24H [facility] Last Admin: 11/30/17 21:55 Dose: 1,000 mg Vancomycin HCl 750 mg/Vancomycin HCl 500 mg/ Sodium Chloride 250 mls @ 175 mls/ hr IV Q12H [facility] Last Admin: 11/30/17 22:21 Dose: 175 mls/hr Insulin Aspart (Novolog) 0 unit SUBCUT QIDACANDBED [facility] PRN Reason: Protocol Last Admin: 11/30/17 21:55 Dose: Not Given Insulin Detemir (Levemir) 20 unit SUBCUT ONETIME [facility] Last Admin: 11/30/17 22:10 Dose: 20 units Sodium Chloride (Saline Flush) 10 ml FLUSH ASDIRECTED PRN PRN Reason: flush med Last Admin: 11/30/17 23:58 Dose: 10 ml Vancomycin HCl (Pharmacy To Dose - Vancomycin) 0 dose .XX ASDIRECTED [facility] Discontinued Medications Gadoteridol (Prohance) 15 ml IV . DIRECTED [facility] Last Admin: 11/30/17 10:56 Dose: 15 ml Sodium Chloride (Normal Saline) 1,000 mls @ 999 mls/hr IV .BOLUS ONE Stop: 11/28/17 13:44 Last Admin: 11/28/17 13:12 Dose: 999 mls/hr Insulin Human Regular 100 unit (/ Sodium Chloride) 100 mls @ 7.54 mls/hr IV TITRATE [facility]; 0.1 UNITS/KG/HR PRN Reason: Protocol Last Titration: 11/28/17 21:22 Dose: 0.03 units/kg/hr, 3 mls/hr Sodium Chloride (Normal Saline) 1,000 mls @ 999 mls/hr IV .BOLUS ONE Stop: 11/28/17 15:11 Last Admin: 11/28/17 14:17 Dose: 999 mls/hr Sodium Chloride (Normal Saline) 1,000 mls @ 250 mls/hr IV ASDIRECTED [facility] Last Admin: 11/28/17 15:20 Dose: 125 mls/hr Sodium Chloride (Normal Saline) 1,000 mls @ 250 mls/hr IV ASDIRECTED [facility] Ceftriaxone Sodium 1,000 mg/ (Sodium Chloride) 50 mls @ 100 mls/hr IV Q24H [facility] Sodium Chloride (Normal Saline) 1,000 mls @ 200 mls/hr IV ASDIRECTED [facility] Last Admin: 11/28/17 19:55 Dose: 200 mls/hr Potassium Chloride/Dextrose/Sod Cl (D5 1/2 Ns W/ 10 Meq/L Kcl) 1,000 mls @ 150 mls/hr IV ASDIRECTED [facility] Last Admin: 11/29/17 05:29 Dose: 150 mls/hr Potassium Chloride/Dextrose/Sod Cl (D5 1/2 Ns W/ 20 Meq/L Kcl) 1,000 mls @ 150 mls/hr IV ASDIRECTED [facility] Last Admin: 11/29/17 06:01 Dose: 150 mls/hr Insulin Aspart (Novolog) 20 unit SUBCUT ONETIME ONE Stop: 11/30/17 22:03 Last Admin: 11/30/17 22:09 Dose: 20 units Insulin Detemir (Levemir) 20 unit SUBCUT ONETIME ONE Stop: 11/29/17 21:01 Last Admin: 11/29/17 20:29 Dose: 20 units Insulin Human Regular (Humulin R) 10 unit IVPUSH ONETIME STA PRN Reason: Protocol Stop: 11/28/17 13:54 Last Admin: 11/28/17 14:06 Dose: 10 units Ondansetron HCl (Zofran) 8 mg IVPUSH ONETIME ONE Stop: 11/28/17 12:45 Last Admin: 11/28/17 13:15 Dose: 8 mg - Exam Quality Assessment: No: Supplemental Oxygen General: Alert, Oriented HEENT: Pupils Equal, Pupils Reactive, EOMI, Mucous Membr. Moist/[place] Neck: Supple Extremities: Redness (Left wrsit). No: Pedal Edema - Problem List & Annotations (1) Abscess SNOMED Code(s): 467704951 Code(s): L02.91 - CUTANEOUS ABSCESS, UNSPECIFIED Status: Acute Current Visit: Yes (2) DKA (diabetic ketoacidoses) SNOMED Code(s): 570364118 Code(s): E13.10 - OTH DIABETES MELLITUS WITH KETOACIDOSIS WITHOUT COMA Status: Acute Current Visit: Yes Qualifiers: Diabetes mellitus type: other specified (including JOANNA) Diabetes mellitus complication detail: without coma Qualified Code(s): E13.10 - Other specified diabetes mellitus with ketoacidosis without coma (3) Bacteremia SNOMED Code(s): 3347531 Code(s): R78.81 - BACTEREMIA Status: Acute Current Visit: Yes (4) Cellulitis SNOMED Code(s): 452634604 Code(s): L03.90 - CELLULITIS, UNSPECIFIED Status: Acute Current Visit: Yes Qualifiers: Site of cellulitis: extremity - Problem List Review Problem List Initiated/Reviewed/Updated: Yes - My Orders Last 24 Hours: My Active Orders 11/30/17 08:03 Bisacodyl [Dulcolax] 5 mg PO DAILY PRN 11/30/17 09:08 Upr Ext Joint w wo Cont Lt [MR] Routine 11/30/17 10:00 Vancomycin Pharmacy to Dose [Pharmacy to Dose - Vancomycin] See Dose Instructions .XX ASDIRECTED 11/30/17 10:30 Vancomycin 750 mg Vancomycin 500 mg Sodium Chloride 0.45% 250 ml IV Q12H 11/30/17 15:13 May Shower [RC] ASDIRECTED 11/30/17 21:50 Sodium Chloride 0.9% [Saline Flush] 10 ml FLUSH ASDIRECTED PRN 11/30/17 22:00 Insulin Detemir [Levemir] 20 unit SUBCUT ONETIME 12/01/17 04:35 CULTURE BLOOD [BC] Routine 12/01/17 05:11 CBC WITH AUTO DIFF [HEME] AM COMPREHENSIVE METABOLIC PN,CMP [CHEM] AM 12/01/17 22:00 VANCOMYCIN TROUGH [CHEM] Routine 12/02/17 05:11 CBC WITH AUTO DIFF [HEME] AM COMPREHENSIVE METABOLIC PN,CMP [CHEM] AM - Plan Plan:: MRI reviewed. No evidence of Osteomyelitis or spetic arthritis. No abscess. Willcontinue IV Vanco/Ceftriaxone for 1 more day.DC to home on Saturday(tomorrow)
[2017-12-01] MEDS: Insulin Aspart 100 Units/ML 3 ML Pen SUBCUT SCH ×4 (08:35→20:13)
[2017-12-01] MEDS: Sodium Chloride 0.9% 10 ML Syringe FLUSH PRN ×2 (10:40→12:20)
[2017-12-01] MEDS: SODIUM CHLORIDE 0.45% IV SCH ×2 (10:42→22:16)
[2017-12-01] MEDS: VANCOMYCIN IV SCH ×2 (10:42→22:16)
[2017-12-01] MEDS: cefTRIAXone 1,000 MG VIAL IV SCH (20:05)
[2017-12-02] MEDS ORDERED: Sodium Chloride 0.9% 250 ML IV SCH (01:50)
[2017-12-02] MEDS: Insulin Aspart 100 Units/ML 3 ML Pen SUBCUT SCH ×2 (07:46→11:44)
[2017-12-02 07:58] VITALS: BP 104/57
--- NOTE | 2017-12-02 08:40 | PCM.PN ---
- General Info Date of Service: 12/02/17 Subjective Update: Patient doing much better this morning. Denies pain fever or chills. Sugars are still above 200 in the morning's Functional Status: Reports: Pain Controlled, Tolerating Diet - Patient Data Vitals - Most Recent: Last Vital Signs Temp 99.2 F 12/02/17 07:58 Pulse 99 12/02/17 07:58 Resp 18 12/02/17 07:58 BP 104/57 L 12/02/17 07:58 Pulse Ox 99 12/02/17 07:58 Weight - Most Recent: 80.014 kg I&O - Last 24 Hours: Intake & Output 12/01/17 12/02/17 12/02/17 22:59 06:59 14:59 Intake Total 1125 Balance 1125 Lab Results Last 24 Hours: Laboratory Results - last 24 hr 11/29/17 12/01/17 12/01/17 Range/Units 10:20 10:59 17:02 WBC (4.5-12.0) X10-3/uL RBC (4.30-5.75) x10(6)uL Hgb (11.5-15.5) g/dL Hct (30.0-51.3) % MCV (80-96) fL MCH (27.7-33.6) pg MCHC (32.2-35.4) g/dL RDW (11.5-15.5) % Plt Count (125-369) X10(3)uL MPV (7.4-10.4) fL Neut % (Auto) (46-82) % Lymph % (Auto) (13-37) % [place] % (Auto) (4-12) % Eos % (Auto) (1.0-5.0) % Baso % (Auto) (0-2) % Neut # (Auto) (1.6-8.3) # Lymph # (Auto) (0.6-5.0) # [place] # (Auto) (0.0-1.3) # Eos # (Auto) (0.0-0.8) # Baso # (Auto) (0.0-0.2) # Sodium (135-145) mmol/L Potassium (3.5-5.3) mmol/L Chloride (100-110) mmol/L Carbon Dioxide (21-32) mmol/L BUN (7-18) mg/dL Creatinine (0.70-1.30) mg/dL Est Cr Clr Drug Dosing mL/min Estimated GFR (MDRD) (>60) BUN/Creatinine Ratio (9-20) Glucose (80-116) mg/dL POC Glucose 215 H D 264 H (80-116) mg/dL C-Peptide 1.0 L (1.1-4.4) ng/mL Calcium (8.6-10.2) mg/dL Total Bilirubin (0.1-1.3) mg/dL AST (5-25) IU/L ALT (12-36) U/L Alkaline Phosphatase (56-112) IU/L Total Protein (6.0-8.0) g/dL Albumin (3.5-5.2) g/dL Globulin g/dL Albumin/Globulin Ratio Vancomycin Trough (5.0-10.0) ug/mL DAVIE Antibody >250.0 H (<5.1) U/mL 12/01/17 12/01/17 12/02/17 Range/Units 20:10 22:00 06:40 WBC 6.8 (4.5-12.0) X10-3/uL RBC 4.20 L (4.30-5.75) x10(6)uL Hgb 12.4 (11.5-15.5) g/dL Hct 35.2 (30.0-51.3) % MCV 83.7 (80-96) fL MCH 29.6 (27.7-33.6) pg MCHC 35.4 (32.2-35.4) g/dL RDW 12.2 (11.5-15.5) % Plt Count 226 (125-369) X10(3)uL MPV 9.5 (7.4-10.4) fL Neut % (Auto) 47.8 (46-82) % Lymph % (Auto) 36.3 (13-37) % [place] % (Auto) 13.1 H (4-12) % Eos % (Auto) 2 (1.0-5.0) % Baso % (Auto) 1 (0-2) % Neut # (Auto) 3.2 (1.6-8.3) # Lymph # (Auto) 2.5 (0.6-5.0) # [place] # (Auto) 0.9 (0.0-1.3) # Eos # (Auto) 0.1 (0.0-0.8) # Baso # (Auto) 0.1 (0.0-0.2) # Sodium (135-145) mmol/L Potassium (3.5-5.3) mmol/L Chloride (100-110) mmol/L Carbon Dioxide (21-32) mmol/L BUN (7-18) mg/dL Creatinine (0.70-1.30) mg/dL Est Cr Clr Drug Dosing mL/min Estimated GFR (MDRD) (>60) BUN/Creatinine Ratio (9-20) Glucose (80-116) mg/dL POC Glucose 301 H (80-116) mg/dL C-Peptide (1.1-4.4) ng/mL Calcium (8.6-10.2) mg/dL Total Bilirubin (0.1-1.3) mg/dL AST (5-25) IU/L ALT (12-36) U/L Alkaline Phosphatase (56-112) IU/L Total Protein (6.0-8.0) g/dL Albumin (3.5-5.2) g/dL Globulin g/dL Albumin/Globulin Ratio Vancomycin Trough 7.8 (5.0-10.0) ug/mL DAVIE Antibody (<5.1) U/mL 12/02/17 Range/Units 06:40 WBC (4.5-12.0) X10-3/uL RBC (4.30-5.75) x10(6)uL Hgb (11.5-15.5) g/dL Hct (30.0-51.3) % MCV (80-96) fL MCH (27.7-33.6) pg MCHC (32.2-35.4) g/dL RDW (11.5-15.5) % Plt Count (125-369) X10(3)uL MPV (7.4-10.4) fL Neut % (Auto) (46-82) % Lymph % (Auto) (13-37) % [place] % (Auto) (4-12) % Eos % (Auto) (1.0-5.0) % Baso % (Auto) (0-2) % Neut # (Auto) (1.6-8.3) # Lymph # (Auto) (0.6-5.0) # [place] # (Auto) (0.0-1.3) # Eos # (Auto) (0.0-0.8) # Baso # (Auto) (0.0-0.2) # Sodium 138 (135-145) mmol/L Potassium 4.3 D (3.5-5.3) mmol/L Chloride 103 (100-110) mmol/L Carbon Dioxide 24 (21-32) mmol/L BUN 8 (7-18) mg/dL Creatinine 0.9 (0.70-1.30) mg/dL Est Cr Clr Drug Dosing 107.78 mL/min Estimated GFR (MDRD) > 60 (>60) BUN/Creatinine Ratio 8.9 L (9-20) Glucose 242 H D (80-116) mg/dL POC Glucose (80-116) mg/dL C-Peptide (1.1-4.4) ng/mL Calcium 8.5 L (8.6-10.2) mg/dL Total Bilirubin 0.3 (0.1-1.3) mg/dL AST 26 H (5-25) IU/L ALT 27 (12-36) U/L Alkaline Phosphatase 72 (56-112) IU/L Total Protein 6.4 (6.0-8.0) g/dL Albumin 2.2 L (3.5-5.2) g/dL Globulin 4.2 g/dL Albumin/Globulin Ratio 0.5 Vancomycin Trough (5.0-10.0) ug/mL DAVIE Antibody (<5.1) U/mL Sachin Results Last 24 Hours: Microbiology 12/01/17 06:10 Aerobic Blood Culture - Preliminary Blood NO GROWTH AFTER 1 DAY Anaerobic Blood Culture - Preliminary NO GROWTH AFTER 1 DAY 11/28/17 14:50 Aerobic Blood Culture - Final Blood - Venous - Lab Draw (Mrsa) Staphylococcus Aureus Anaerobic Blood Culture - Preliminary NO GROWTH AFTER 3 DAYS 11/28/17 14:20 Aerobic Blood Culture - Preliminary Blood - Venous NO GROWTH AFTER 3 DAYS Anaerobic Blood Culture - Preliminary NO GROWTH AFTER 3 DAYS Med Orders - Current: Current Medications Bisacodyl (Dulcolax) 5 mg PO DAILY PRN PRN Reason: Constipation Last Admin: 12/01/17 00:18 Dose: 5 mg Ceftriaxone Sodium (Rocephin) 1,000 mg IV Q24H [facility] Last Admin: 12/01/17 20:05 Dose: 1,000 mg Sodium Chloride (Normal Saline) 250 mls @ 100 mls/hr IV ASDIRECTED [facility] Vancomycin HCl 750 mg/Vancomycin HCl 1,000 mg/Sodium Chloride 500 mls @ 333.333 mls/hr IV Q12H [facility] Insulin Aspart (Novolog) 0 unit SUBCUT QIDACANDBED [facility] PRN Reason: Protocol Last Admin: 12/02/17 07:46 Dose: 6 units Insulin Detemir (Levemir) 20 unit SUBCUT ONETIME [facility] Last Admin: 11/30/17 22:10 Dose: 20 units Sodium Chloride (Saline Flush) 10 ml FLUSH ASDIRECTED PRN PRN Reason: flush med Last Admin: 12/01/17 12:20 Dose: 10 ml Vancomycin HCl (Pharmacy To Dose - Vancomycin) 0 dose .XX ASDIRECTED [facility] Discontinued Medications Gadoteridol (Prohance) 15 ml IV . DIRECTED [facility] Last Admin: 11/30/17 10:56 Dose: 15 ml Sodium Chloride (Normal Saline) 1,000 mls @ 999 mls/hr IV .BOLUS ONE Stop: 11/28/17 13:44 Last Admin: 11/28/17 13:12 Dose: 999 mls/hr Insulin Human Regular 100 unit (/ Sodium Chloride) 100 mls @ 7.54 mls/hr IV TITRATE [facility]; 0.1 UNITS/KG/HR PRN Reason: Protocol Last Titration: 11/28/17 21:22 Dose: 0.03 units/kg/hr, 3 mls/hr Sodium Chloride (Normal Saline) 1,000 mls @ 999 mls/hr IV .BOLUS ONE Stop: 11/28/17 15:11 Last Admin: 11/28/17 14:17 Dose: 999 mls/hr Sodium Chloride (Normal Saline) 1,000 mls @ 250 mls/hr IV ASDIRECTED [facility] Last Admin: 11/28/17 15:20 Dose: 125 mls/hr Sodium Chloride (Normal Saline) 1,000 mls @ 250 mls/hr IV ASDIRECTED [facility] Ceftriaxone Sodium 1,000 mg/ (Sodium Chloride) 50 mls @ 100 mls/hr IV Q24H [facility] Sodium Chloride (Normal Saline) 1,000 mls @ 200 mls/hr IV ASDIRECTED [facility] Last Admin: 11/28/17 19:55 Dose: 200 mls/hr Potassium Chloride/Dextrose/Sod Cl (D5 1/2 Ns W/ 10 Meq/L Kcl) 1,000 mls @ 150 mls/hr IV ASDIRECTED [facility] Last Admin: 11/29/17 05:29 Dose: 150 mls/hr Potassium Chloride/Dextrose/Sod Cl (D5 1/2 Ns W/ 20 Meq/L Kcl) 1,000 mls @ 150 mls/hr IV ASDIRECTED [facility] Last Admin: 11/29/17 06:01 Dose: 150 mls/hr Vancomycin HCl 750 mg/Vancomycin HCl 500 mg/ Sodium Chloride 250 mls @ 175 mls/ hr IV Q12H [facility] Last Admin: 12/01/17 22:16 Dose: 175 mls/hr Vancomycin HCl 500 mg/ Sodium (Chloride) 250 mls @ 166.667 mls/hr IV ONETIME ONE Stop: 12/02/17 01:29 Last Admin: 12/02/17 00:06 Dose: 166.667 mls/hr Insulin Aspart (Novolog) 20 unit SUBCUT ONETIME ONE Stop: 11/30/17 22:03 Last Admin: 11/30/17 22:09 Dose: 20 units Insulin Detemir (Levemir) 20 unit SUBCUT ONETIME ONE Stop: 11/29/17 21:01 Last Admin: 11/29/17 20:29 Dose: 20 units Insulin Human Regular (Humulin R) 10 unit IVPUSH ONETIME STA PRN Reason: Protocol Stop: 11/28/17 13:54 Last Admin: 11/28/17 14:06 Dose: 10 units Ondansetron HCl (Zofran) 8 mg IVPUSH ONETIME ONE Stop: 11/28/17 12:45 Last Admin: 11/28/17 13:15 Dose: 8 mg - Exam Quality Assessment: No: Supplemental Oxygen General: Alert HEENT: Pupils Equal Neck: Supple Extremities: Increased Warmth, Redness - Problem List & Annotations (1) Abscess SNOMED Code(s): 364138291 Code(s): L02.91 - CUTANEOUS ABSCESS, UNSPECIFIED Status: Acute Current Visit: Yes (2) DKA (diabetic ketoacidoses) SNOMED Code(s): 000338331 Code(s): E13.10 - OTH DIABETES MELLITUS WITH KETOACIDOSIS WITHOUT COMA Status: Acute Current Visit: Yes Qualifiers: Diabetes mellitus type: other specified (including JOANNA) Diabetes mellitus complication detail: without coma Qualified Code(s): E13.10 - Other specified diabetes mellitus with ketoacidosis without coma (3) Bacteremia SNOMED Code(s): 5152626 Code(s): R78.81 - BACTEREMIA Status: Acute Current Visit: Yes (4) Cellulitis SNOMED Code(s): 110619168 Code(s): L03.90 - CELLULITIS, UNSPECIFIED Status: Acute Current Visit: Yes Qualifiers: Site of cellulitis: extremity - Problem List Review Problem List Initiated/Reviewed/Updated: Yes - My Orders Last 24 Hours: My Active Orders 12/02/17 01:50 Sodium Chloride 0.9% [Normal Saline] 250 ml IV ASDIRECTED 12/02/17 10:00 Vancomycin 750 mg Vancomycin 1,000 mg Sodium Chloride 0.9% [Normal Saline] 500 ml IV Q12H 12/03/17 09:30 VANCOMYCIN TROUGH [CHEM] Timed - Plan Plan:: Blood culture has grown MRSA. Repeat blood culture yesterday is 24 hours old and still negative. I reviewed his wound culture also from the clinic that showed MRSA. They're both sensitive to Bactrim. I will discharge him home today on Bactrim, Lantus, and NovoLog.
[2017-12-02] MEDS ORDERED: Vancomycin 750 MG, Vancomycin 1,000 MG in Sodium Chloride 0.9% 500 ML IV SCH (10:00)
--- NOTE | 2017-12-02 10:22 | DISCH ---
DISCHARGE DATE: 12/02/2017 REASON FOR ADMISSION: 1. Diabetic ketoacidosis. 2. Abscess, left thumb. DISCHARGE DIAGNOSES: 1. Diabetic ketoacidosis. 2. Unspecified diabetes mellitus. 3. Bacteremia. 4. Cellulitis of the left thumb and hand. CONSULTATIONS: None. BRIEF HISTORY AND HOSPITAL COURSE: A 51-year-old, admitted from the clinic because of dizziness, hearing loss, weakness, polyuria, and found to have hyperglycemia with acidosis. This is a new diagnosis for him. He had an abscess of the left thumb that was drained in the clinic. He was admitted on Rocephin, IV fluids, and insulin initially in the ICU. The sugars normalized. He still had pain and swelling of the left thumb. An MRI that was done on Saturday, revealed no abscess or joint inflammation and the wound improved continually. Initial blood cultures grew MRSA and so did the wound culture. Both were sensitive to Bactrim. He was treated with IV vancomycin while in the hospital. Discharged home on Bactrim DS 1 tablet b.i.d. for 10 days. Other discharge medications, Lantus 20 units at night and NovoLog 10 units with every meal. FOLLOWUP: The patient to see his physician on this week. Prescriptions were arranged and glucometer and blood sugar testing strips were also sent to the pharmacy. Because he has no insurance, he will need help and the pharmacy can dispense from the repository. Please note, that I spent more than 35 minutes in the discharge of this patient. /[id number] MONIQUE/ISIDRO
== END 2017-12-02 11:07 | disposition home or self-care (01) | DRG 638 ==
LOC: FB.ED 12:32 → FB.ICU 14:12 → FB.MS 11-29 09:07
PROVIDERS: ADMIT Family Medicine; ATTEND Family Medicine
DX: E11.10 Type 2 diabetes mellitus with ketoacidosis without coma (principal); L03.114 Cellulitis of left upper limb; R78.81 Bacteremia; Z79.4 Long term (current) use of insulin; L03.012 Cellulitis of left finger; B95.62 Methicillin resistant Staphylococcus aureus infection as the cause of diseases classified elsewhere; Z79.2 Long term (current) use of antibiotics; F17.210 Nicotine dependence, cigarettes, uncomplicated
CPT/HCPCS: 36415; 36600; 73223-LT; 80048; 80053; 80061; 80202; 80305; 81003; 82803; 82947; 82962; 83036; 83516; 83605; 83735; 84100; 84550; 84681; 85025; 85651; 86140; 87040; 87077; 87186; 93005; 96361; 96374; 96375; 99284; 99285; A9270-GY; J0696; J1815; J2405; J3370; J3480; J7030; J7040; J7050

== ENCOUNTER 2018-12-07 14:36 | Emergency (ER) | payer MEDICAID ==
[2018-12-07] MEDS ORDERED: Sodium Chloride 0.9% 1,000 ML IV ONE (14:39)
[2018-12-07] MEDS ORDERED: Ondansetron 4 MG/2 ML SDV IVPUSH ONE (14:39)
[2018-12-07 14:59] VITALS: BP 131/86
[2018-12-07] MEDS ORDERED: Insulin Regular, Human 100 Units/ML 3 ML Vial IV ONE (15:07)
[2018-12-07] MEDS ORDERED: Sodium Chloride 0.9% 10 ML Syringe FLUSH PRN (15:11)
[2018-12-07] MEDS ORDERED: Sodium Chloride 0.9% 1,000 ML IV SCH ×2 (15:15→16:50)
[2018-12-07] MEDS ORDERED: Sodium Bicarbonate 8.4% 50 MEQ/50 ML Syringe IVPUSH ONE ×2 (15:18→15:36)
--- NOTE | 2018-12-07 15:25 | EDM.PDOC ---
ED HPI GENERAL MEDICAL PROBLEM - General Stated Complaint: VOMITTING,DIZZY Time Seen by Provider: 12/07/18 14:40 Source of Information: Reports: Patient, Family History Limitations: Reports: Physical Impairment, Respiratory Distress - History of Present Illness INITIAL COMMENTS - FREE TEXT/NARRATIVE: 52 y.o.w.m with IDDM. dx'd 1 year ago, came with a friend to the ed due to N/V SOB Kussmaul breathing type, Unable to give a HPI, no family member is present. BP 131/86 Pulse ox 89 RR 30 Temp 35.5 Pulse 103 Onset Date: 12/07/18 Onset Time: 06:00 Duration: Hour(s):, Getting Worse, Intermittent Location: Reports: Generalized Severity: Moderate Improves with: Reports: Medication Worsens with: Reports: Other Context: Reports: Other (IDDM/NIDDM) Associated Symptoms: Reports: Confusion, Malaise, Nausea/Vomiting, Shortness of Breath, Weakness Abdominal Pain Score (Numeric/FACES): 6 - Related Data Allergies Allergy/AdvReac Type Severity Reaction Status Date / Time No Known Allergies Allergy Verified 08/08/18 19:43 Home Meds: Home Meds Insulin Glarg,Human.Rec.Analog [Lantus] 20 unit SQ DAILY #5 pen 12/02/17 [Rx] Insulin Aspart [Novolog] 10 unit SQ TIDMEALS 08/08/18 [History] metFORMIN HCl [Metformin HCl] 1,000 mg PO BID 08/08/18 [History] atorvaSTATin [Lipitor] 20 mg PO BEDTIME 12/07/18 [History] Past Medical History - Past Health History Medical/Surgical History: Denies Medical/Surgical History Endocrine/Metabolic History: Reports: Diabetes, Type II Social & Family History - Family History Family Medical History: Unobtainable - Caffeine Use Caffeine Use: Reports: Coffee ED ROS GENERAL - Review of Systems Review Of Systems: Unable To Obtain ED EXAM GENERAL NO PERIP PULSE - Physical Exam Exam: See Below Exam Limited By: Other (in DKA) General Appearance: Alert, Moderate Distress, Thin Eye Exam: Bilateral Eye: Normal Inspection Ears: Normal External Exam, Normal Canal, Hearing Grossly Normal Nose: Normal Inspection, Normal Mucosa, No Blood Throat/Mouth: Normal Lips, Normal Voice, No Airway Compromise, Other (dry mucosal mebtrane) Head: Atraumatic, Normocephalic Neck: Normal Inspection, Supple, Non-Tender, Full Range of Motion Respiratory/Chest: Respiratory Distress (in DKA, Kussmaul breathing typ) Cardiovascular: Normal Peripheral Pulses, Regular Rate, Rhythm, No Edema GI/Abdominal: Normal Bowel Sounds, Soft, Non-Tender, No Organomegaly, No Abnormal Bruit, No Mass, Pelvis Stable (Male) Exam: Deferred Rectal (Males) Exam: Deferred Back Exam: Normal Inspection, Full Range of Motion Extremities: Normal Inspection, Normal Range of Motion, Non-Tender, No Pedal Edema Neurological: Alert, CN II-XII Intact, Abnormal Gait Psychiatric: Normal Affect, Normal Mood Skin Exam: Warm, Dry, Intact, Normal Color, No Rash Lymphatic: No Adenopathy EKG INTERPRETATION EKG Date: 12/07/18 Time: 15:45 Rhythm: NSR Rate (Beats/Min): 107 Kouts: Normal P-Wave: Present QRS: Normal ST-T: Normal QT: Normal Comparison: NA - No Prior EKG Course - Vital Signs Text/Narrative:: 52 y.o.w.m with IDDM came with a friend to the ed due to N/V SOB Kussmaul breathing type, Unable to give a HPI, no family member is present. BP 131/86 Pulse ox 89 RR 30 Temp 35.5 Pulse 103 52 y.o. w m in DKA Labs: Glc 684 pH 7.04 Bicarbonate 2 pCO2 < 10, BE -36 Na 124 K 5.6 CL 86 GFR 25 Cr 2.4 BUN 37. WBC 19.7 HGn 17.7 Phos 9.1 Troponin 0.017 Impression: DKA, Dehydration, N/V, non comp, hyperkalemia, hyponatremia Tx: NS 2 liters, Biocarbonate, 10 units bolus insulin, Insulin drip, Zofran 3.27 pm Consultation: Dr Junior, [facility]: Accepted the pt for transfer and further care if ECG and troponin are neg. Reexam: Improved Plan: Transfer to [place] by EMS to [place] ICU Last Recorded V/S: Last Vital Signs Temp 35.5 C 12/07/18 14:40 Pulse 103 H 12/07/18 14:40 Resp 30 H 12/07/18 14:40 BP 131/86 12/07/18 14:40 Pulse Ox 100 12/07/18 14:40 - Orders/Labs/Meds Labs: Laboratory Tests 12/07/18 12/07/18 12/07/18 Range/Units 14:49 14:55 14:55 WBC 19.1 H (4.5-12.0) X10-3/uL RBC 5.72 (4.30-5.75) x10(6)uL Hgb 17.0 H (11.5-15.5) g/dL Hct 52.4 H (30.0-51.3) % MCV 91.6 (80-96) fL MCH 29.7 (27.7-33.6) pg MCHC 32.4 (32.2-35.4) g/dL RDW 12.4 (11.5-15.5) % Plt Count 295 (125-369) X10(3)uL MPV 9.5 (7.4-10.4) fL Add Manual Diff Yes Neutrophils % (Manual) 91 H (46-82) % Lymphocytes % (Manual) 6 L (13-37) % Monocytes % (Manual) 3 L (4-12) % ABG pH (7.35-7.45) ABG pCO2 (35-45) mmHg ABG pO2 (83-108) mmHg ABG HCO3 (22-26) mmol/L ABG O2 Saturation (96-97) % ABG Base Excess (-2-2) Thomas Test O2 Delivery Device Sodium Cancelled Potassium Cancelled Chloride Cancelled Carbon Dioxide Cancelled Anion Gap Cancelled BUN Cancelled Creatinine Cancelled Est Cr Clr Drug Dosing Cancelled Estimated GFR (MDRD) Cancelled BUN/Creatinine Ratio Cancelled Glucose Cancelled POC Glucose > 500 H* D (80-116) mg/dL Hemoglobin A1c (4.5-6.2) % Calcium Cancelled Phosphorus (2.6-4.6) mg/dL Magnesium (1.8-2.5) mg/dL Total Bilirubin (0.1-1.3) mg/dL AST (5-25) IU/L ALT (12-36) U/L Alkaline Phosphatase (56-112) IU/L Troponin I (<0.017-0.056) ng/mL Total Protein (6.0-8.0) g/dL Albumin (3.5-5.2) g/dL Globulin g/dL Albumin/Globulin Ratio 12/07/18 12/07/18 12/07/18 Range/Units 14:55 14:55 14:55 WBC (4.5-12.0) X10-3/uL RBC (4.30-5.75) x10(6)uL Hgb (11.5-15.5) g/dL Hct (30.0-51.3) % MCV (80-96) fL MCH (27.7-33.6) pg MCHC (32.2-35.4) g/dL RDW (11.5-15.5) % Plt Count (125-369) X10(3)uL MPV (7.4-10.4) fL Add Manual Diff Neutrophils % (Manual) (46-82) % Lymphocytes % (Manual) (13-37) % Monocytes % (Manual) (4-12) % ABG pH (7.35-7.45) ABG pCO2 (35-45) mmHg ABG pO2 (83-108) mmHg ABG HCO3 (22-26) mmol/L ABG O2 Saturation (96-97) % ABG Base Excess (-2-2) Thomas Test O2 Delivery Device Sodium 124 L D Potassium 5.9 H D Chloride 86 L* D Carbon Dioxide < 5 L* Anion Gap BUN 37 H D Creatinine 2.4 H* Est Cr Clr Drug Dosing 37.38 Estimated GFR (MDRD) 29 L BUN/Creatinine Ratio 15.4 Glucose 686 H* D POC Glucose (80-116) mg/dL Hemoglobin A1c 10.2 H (4.5-6.2) % Calcium 9.8 Phosphorus 9.1 H* (2.6-4.6) mg/dL Magnesium 1.9 (1.8-2.5) mg/dL Total Bilirubin 0.4 (0.1-1.3) mg/dL AST 18 (5-25) IU/L ALT 37 H (12-36) U/L Alkaline Phosphatase 105 (56-112) IU/L Troponin I < 0.017 L (<0.017-0.056) ng/mL Total Protein 8.5 H (6.0-8.0) g/dL Albumin 3.9 (3.5-5.2) g/dL Globulin 4.6 g/dL Albumin/Globulin Ratio 0.9 12/07/18 12/07/18 12/07/18 Range/Units 15:05 15:41 16:36 WBC (4.5-12.0) X10-3/uL RBC (4.30-5.75) x10(6)uL Hgb (11.5-15.5) g/dL Hct (30.0-51.3) % MCV (80-96) fL MCH (27.7-33.6) pg MCHC (32.2-35.4) g/dL RDW (11.5-15.5) % Plt Count (125-369) X10(3)uL MPV (7.4-10.4) fL Add Manual Diff Neutrophils % (Manual) (46-82) % Lymphocytes % (Manual) (13-37) % Monocytes % (Manual) (4-12) % ABG pH 7.04 L* (7.35-7.45) ABG pCO2 < 10 L* (35-45) mmHg ABG pO2 118 H (83-108) mmHg ABG HCO3 2 L (22-26) mmol/L ABG O2 Saturation 96 (96-97) % ABG Base Excess -36.0 L (-2-2) Thomas Test passed O2 Delivery Device Room air Sodium Potassium Chloride Carbon Dioxide Anion Gap BUN Creatinine Est Cr Clr Drug Dosing Estimated GFR (MDRD) BUN/Creatinine Ratio Glucose POC Glucose > 500 H* > 500 H* (80-116) mg/dL Hemoglobin A1c (4.5-6.2) % Calcium Phosphorus (2.6-4.6) mg/dL Magnesium (1.8-2.5) mg/dL Total Bilirubin (0.1-1.3) mg/dL AST (5-25) IU/L ALT (12-36) U/L Alkaline Phosphatase (56-112) IU/L Troponin I (<0.017-0.056) ng/mL Total Protein (6.0-8.0) g/dL Albumin (3.5-5.2) g/dL Globulin g/dL Albumin/Globulin Ratio 12/07/18 12/07/18 Range/Units 16:51 16:53 WBC (4.5-12.0) X10-3/uL RBC (4.30-5.75) x10(6)uL Hgb (11.5-15.5) g/dL Hct (30.0-51.3) % MCV (80-96) fL MCH (27.7-33.6) pg MCHC (32.2-35.4) g/dL RDW (11.5-15.5) % Plt Count (125-369) X10(3)uL MPV (7.4-10.4) fL Add Manual Diff Neutrophils % (Manual) (46-82) % Lymphocytes % (Manual) (13-37) % Monocytes % (Manual) (4-12) % ABG pH (7.35-7.45) ABG pCO2 (35-45) mmHg ABG pO2 (83-108) mmHg ABG HCO3 (22-26) mmol/L ABG O2 Saturation (96-97) % ABG Base Excess (-2-2) Thomas Test O2 Delivery Device Sodium Potassium Chloride Carbon Dioxide Anion Gap BUN Creatinine Est Cr Clr Drug Dosing Estimated GFR (MDRD) BUN/Creatinine Ratio Glucose 502 H* D POC Glucose > 500 H* (80-116) mg/dL Hemoglobin A1c (4.5-6.2) % Calcium Phosphorus (2.6-4.6) mg/dL Magnesium (1.8-2.5) mg/dL Total Bilirubin (0.1-1.3) mg/dL AST (5-25) IU/L ALT (12-36) U/L Alkaline Phosphatase (56-112) IU/L Troponin I (<0.017-0.056) ng/mL Total Protein (6.0-8.0) g/dL Albumin (3.5-5.2) g/dL Globulin g/dL Albumin/Globulin Ratio Meds: Medications Discontinued Medications Generic Name Dose Route Start Last Admin Trade Name Freq PRN Reason Stop Dose Admin Sodium Chloride 1,000 mls @ 999 mls/hr 12/07/18 14:39 12/07/18 15:01 Normal Saline IV 12/07/18 15:39 999 mls/hr .BOLUS ONE Administration Sodium Chloride 1,000 mls @ 999 mls/hr 12/07/18 15:15 12/07/18 16:05 Normal Saline IV 999 mls/hr BOLUS AZIZA Administration Insulin Human Regular 10 unit/ 500 mls @ 100 mls/hr 12/07/18 15:30 Dextrose/Water IV ASDIRECTED AZIZA Protocol Insulin Human Regular 100 unit 100 mls @ 7.3 mls/hr 12/07/18 15:30 / Sodium Chloride IV TITRATE AZIZA Protocol 0.1 UNITS/KG/HR Sodium Chloride Confirm 12/07/18 15:45 12/07/18 17:22 Normal Saline Administered 12/07/18 15:46 Not Given Dose 100 mls @ as directed .ROUTE .STK-MED ONE Insulin Human Regular 100 unit 100 mls @ 7.25 mls/hr 12/07/18 16:00 12/07/18 16:51 / Sodium Chloride IV 0.16 units/kg/hr TITRATE AZIZA 12 mls/hr Titration Protocol 0.1 UNITS/KG/HR Sodium Chloride 1,000 mls @ 250 mls/hr 12/07/18 16:50 12/07/18 17:02 Normal Saline IV 250 mls/hr ASDIRECTED AZIZA Administration Insulin Human Regular 10 unit 12/07/18 15:07 12/07/18 15:07 Humulin R IV 12/07/18 15:08 10 units ONETIME ONE Administration Ondansetron HCl 8 mg 12/07/18 14:39 12/07/18 15:08 Zofran IVPUSH 12/07/18 14:40 8 mg ONETIME ONE Administration Sodium Bicarbonate 50 meq 12/07/18 15:18 12/07/18 15:15 Sodium Bicarbonate 8.4% IVPUSH 12/07/18 15:19 50 meq ONETIME ONE Administration Sodium Bicarbonate 50 meq 12/07/18 15:36 12/07/18 15:36 Sodium Bicarbonate 8.4% IVPUSH 12/07/18 15:37 50 meq ONETIME ONE Administration Sodium Chloride 10 ml 12/07/18 15:11 Saline Flush FLUSH ASDIRECTED PRN Keep Vein Open Departure - Departure Time of Disposition: 17:00 Disposition: DC/Tfer to Acute Hospital 02 Condition: Fair Clinical Impression: DKA (diabetic ketoacidoses) Qualifiers: Diabetes mellitus type: other specified (including JOANNA) Diabetes mellitus complication detail: without coma Qualified Code(s): E13.10 - Other specified diabetes mellitus with ketoacidosis without coma - Discharge Information Referrals: PCP,Unknown [Primary Care Provider] - Forms: ED Department Discharge
[2018-12-07] MEDS ORDERED: Insulin Regular, Human 10 UNIT in Dextrose 10% in Water 499.9 ML IV SCH ×2 (15:30)
[2018-12-07] MEDS ORDERED: Sodium Chloride 0.9% 100 ML ONE (15:45)
[2018-12-07 16:07] LABS: HEMOGLOBIN A1C 10.2 % (4.5-6.2)
== END 2018-12-07 17:02 ==
LOC: FB.ED 14:36
DX: E13.10 Other specified diabetes mellitus with ketoacidosis without coma (principal); E87.5 Hyperkalemia; E86.0 Dehydration; E87.1 Hypo-osmolality and hyponatremia; R11.2 Nausea with vomiting, unspecified
CPT/HCPCS: 36415; 36600; 80053; 82803; 82947; 82962; 83036; 83735; 84100; 84484; 85025; 87040; 93005; 96361; 96365; 96375; 96376; 99285; J1815-GY; J2405; J7030

== ENCOUNTER 2019-08-21 02:40 | Emergency (ER) | payer MEDICAID ==
[2019-08-21] MEDS ORDERED: Sodium Chloride 0.9% 1,000 ML IV ONE (03:00)
[2019-08-21] MEDS ORDERED: Sodium Chloride 0.9% 10 ML Syringe FLUSH PRN (03:16)
[2019-08-21] MEDS ORDERED: Sodium Chloride 0.9% 100 ML ONE (03:44)
[2019-08-21] MEDS ORDERED: Insulin Regular, Human 100 Units/ML 3 ML Vial ONE (03:44)
--- NOTE | 2019-08-21 03:45 | EDM.PDOC ---
ED HPI GENERAL MEDICAL PROBLEM - General Chief Complaint: Gastrointestinal Problem Stated Complaint: SOB Time Seen by Provider: 08/21/19 03:40 Source of Information: Reports: Patient History Limitations: Reports: No Limitations - History of Present Illness INITIAL COMMENTS - FREE TEXT/NARRATIVE: 53 yo male who was brought in by a friend,complaining of not feeling well for 3 days His symptoms include nausea,vomiting,not eating,abdominal cramps and fatigue. He has missed his insulin for at least 3 days,. He is Type 1 Diabetic. Had a similar presentation in November with similar symptoms. - Related Data Allergies Allergy/AdvReac Type Severity Reaction Status Date / Time No Known Allergies Allergy Verified 08/08/18 19:43 Home Meds: Home Meds Insulin Glarg,Human.Rec.Analog [Lantus] 20 unit SQ DAILY #5 pen 12/02/17 [Rx] Insulin Aspart [Novolog] 10 unit SQ TIDMEALS 08/08/18 [History] metFORMIN HCl [Metformin HCl] 1,000 mg PO BID 08/08/18 [History] atorvaSTATin [Lipitor] 20 mg PO BEDTIME 12/07/18 [History] Past Medical History - Past Health History Medical/Surgical History: Denies Medical/Surgical History Cardiovascular History: Reports: High Cholesterol Endocrine/Metabolic History: Reports: Diabetes, Type II Social & Family History - Family History Family Medical History: Unobtainable - Caffeine Use Caffeine Use: Reports: Coffee ED ROS GENERAL - Review of Systems Review Of Systems: ROS reveals no pertinent complaints other than HPI. ED EXAM, GI/ABD - Physical Exam Exam: See Below Exam Limited By: No Limitations General Appearance: Alert, Anxious, Moderate Distress, Cachetic Ears: Normal External Exam Nose: Normal Inspection Throat/Mouth: Normal Inspection Respiratory/Chest: No Accessory Muscle Use, Chest Non-Tender, Prolonged Expiration, Other (Kussmal breathing) Cardiovascular: Normal Peripheral Pulses Rectal (Males) Exam: Normal Exam Back Exam: Normal Inspection Neurological: Alert, Oriented, CN II-XII Intact Course - Orders/Labs/Meds Orders: Active Orders 24 hr Category Date Time Status BLOOD GAS VENOUS [BG] Stat Lab 08/21/19 03:31 Ordered CBC WITH AUTO DIFF [HEME] Stat Lab 08/21/19 03:00 Received UA W/MICROSCOPIC [URIN] Stat Lab 08/21/19 02:52 Ordered Sodium Chloride 0.9% [Normal Saline] 1,000 ml Med 08/21/19 03:00 Active IV .BOLUS Sodium Chloride 0.9% [Saline Flush] Med 08/21/19 03:16 Active 10 ml FLUSH ASDIRECTED PRN Peripheral IV Insertion Adult [OM.PC] Routine Oth 08/21/19 03:16 Ordered Medication Orders Sodium Chloride (Normal Saline) 1,000 mls @ 999 mls/hr IV .BOLUS ONE Stop: 08/21/19 04:00 Last Admin: 08/21/19 03:08 Dose: 999 mls/hr Sodium Chloride (Saline Flush) 10 ml FLUSH ASDIRECTED PRN PRN Reason: Keep Vein Open Last Admin: 08/21/19 03:08 Dose: 10 ml Labs: Laboratory Tests 08/21/19 Range/Units 03:00 Sodium 124 L (135-145) mmol/L Potassium 5.8 H (3.5-5.3) mmol/L Chloride 84 L* (100-110) mmol/L Carbon Dioxide < 5 L* (21-32) mmol/L BUN 36 H (7-18) mg/dL Creatinine 2.2 H* (0.70-1.30) mg/dL Est Cr Clr Drug Dosing TNP Estimated GFR (MDRD) 32 L (>60) BUN/Creatinine Ratio 16.4 (9-20) Glucose 713 H* D (80-116) mg/dL Calcium 9.3 (8.6-10.2) mg/dL Meds: Medications Generic Name Dose Route Start Last Admin Trade Name Freq PRN Reason Stop Dose Admin Sodium Chloride 1,000 mls @ 999 mls/hr 08/21/19 03:00 08/21/19 03:08 Normal Saline IV 08/21/19 04:00 999 mls/hr .BOLUS ONE Administration Sodium Chloride 10 ml 08/21/19 03:16 08/21/19 03:08 Saline Flush FLUSH 10 ml ASDIRECTED PRN Administration Keep Vein Open Departure - Departure Time of Disposition: 03:45 Disposition: DC/Tfer to Critical Access 66 Condition: Poor Clinical Impression: Abdominal pain - Discharge Information - Problem List & Annotations (1) DKA (diabetic ketoacidoses) SNOMED Code(s): 570801566, 971701197 Code(s): E13.10 - OTH DIABETES MELLITUS WITH KETOACIDOSIS WITHOUT COMA Status: Acute Qualifiers: Diabetes mellitus type: other specified (including JOANNA) Diabetes mellitus complication detail: without coma Qualified Code(s): E13.10 - Other specified diabetes mellitus with ketoacidosis without coma (2) Dehydration, moderate SNOMED Code(s): 9161292052655 Code(s): E86.0 - DEHYDRATION Status: Acute - Problem List Review Problem List Initiated/Reviewed/Updated: Yes - My Orders Last 24 Hours: My Active Orders 08/21/19 02:52 UA W/MICROSCOPIC [URIN] Stat 08/21/19 03:00 CBC WITH AUTO DIFF [HEME] Stat Sodium Chloride 0.9% [Normal Saline] 1,000 ml IV .BOLUS 08/21/19 03:16 Sodium Chloride 0.9% [Saline Flush] 10 ml FLUSH ASDIRECTED PRN Peripheral IV Insertion Adult [OM.PC] Routine 08/21/19 03:31 BLOOD GAS VENOUS [BG] Stat - Assessment/Plan Last 24 Hours: My Active Orders 08/21/19 02:52 UA W/MICROSCOPIC [URIN] Stat 08/21/19 03:00 CBC WITH AUTO DIFF [HEME] Stat Sodium Chloride 0.9% [Normal Saline] 1,000 ml IV .BOLUS 08/21/19 03:16 Sodium Chloride 0.9% [Saline Flush] 10 ml FLUSH ASDIRECTED PRN Peripheral IV Insertion Adult [OM.PC] Routine 08/21/19 03:31 BLOOD GAS VENOUS [BG] Stat Plan: IV access. 1-2 L normal saline Bolus. Insulin drip. Transfer to [place] ICU
[2019-08-21] MEDS ORDERED: Ondansetron 4 MG/2 ML SDV IVPUSH ONE (03:59)
[2019-08-21] MEDS ORDERED: Ondansetron 4 MG/2 ML SDV ONE (04:01)
[2019-08-21] MEDS ORDERED: Sodium Chloride 0.9% 1,000 ML IV SCH (04:30)
[2019-08-21 05:10] VITALS: PULSE 102
[2019-08-21 05:15] VITALS: BP 156/93
== END 2019-08-21 04:38 | disposition critical access hospital (66) ==
LOC: FB.ED 02:40
DX: R10.9 Unspecified abdominal pain (principal); E10.9 Type 1 diabetes mellitus without complications; Z79.4 Long term (current) use of insulin; E78.5 Hyperlipidemia, unspecified
CPT/HCPCS: 36415; 80048; 81001; 82803; 82962; 85025; 96361; 96365; 96375; 99285; J1815; J2405; J7030

== ENCOUNTER 2019-12-27 06:09 | Emergency (ER) | payer MEDICAID ==
[2019-12-27] MEDS ORDERED: Sodium Chloride 0.9% 1,000 ML IV ONE ×3 (06:22→08:31)
[2019-12-27] MEDS ORDERED: Sodium Chloride 0.9% 10 ML Syringe FLUSH PRN (06:22)
[2019-12-27] MEDS ORDERED: Insulin Regular, Human 100 Units/ML 3 ML Vial IV ONE (06:36)
[2019-12-27 06:38] VITALS: PULSE 99
--- NOTE | 2019-12-27 06:52 | EDM.PDOC ---
ED HPI GENERAL MEDICAL PROBLEM - General Chief Complaint: General Stated Complaint: DIABETES Time Seen by Provider: 12/27/19 06:30 Source of Information: Reports: Patient History Limitations: Reports: No Limitations - History of Present Illness INITIAL COMMENTS - FREE TEXT/NARRATIVE: Presents with low abdominal pain and vomiting x 2 days. He is a Type 2 Diabetic , states he is compliant with his medications. Denies prior abdominal surgeries. No diarrhea or urinary complaints. Denies EtOH or illicit drug use. Duration: Day(s): (2) Location: Reports: Abdomen Associated Symptoms: Reports: Nausea/Vomiting - Related Data Allergies Allergy/AdvReac Type Severity Reaction Status Date / Time No Known Allergies Allergy Verified 08/21/19 04:20 Home Meds: Home Meds Insulin Glarg,Human.Rec.Analog [Lantus] 20 unit SQ DAILY #5 pen 12/02/17 [Rx] Insulin Aspart [Novolog] 10 unit SQ TIDMEALS 08/08/18 [History] metFORMIN HCl [Metformin HCl] 1,000 mg PO BID 08/08/18 [History] atorvaSTATin [Lipitor] 20 mg PO BEDTIME 12/07/18 [History] Past Medical History Cardiovascular History: Reports: High Cholesterol Endocrine/Metabolic History: Reports: Diabetes, Type II Social & Family History - Family History Family Medical History: Unobtainable - Tobacco Use Smoking Status *Q: Current Every Day Smoker Tobacco Use Within Last Twelve Months: Cigarettes - Caffeine Use Caffeine Use: Reports: Coffee - Alcohol Use Alcohol Use History: No - Recreational Drug Use Recreational Drug Use: No ED ROS GENERAL - Review of Systems Review Of Systems: Comprehensive ROS is negative, except as noted in HPI. ED EXAM, GENERAL - Physical Exam Exam: See Below Exam Limited By: No Limitations General Appearance: Alert, WD/WN, No Apparent Distress Ears: Normal External Exam Nose: Normal Inspection Throat/Mouth: No Airway Compromise Head: Atraumatic, Normocephalic Neck: Supple Respiratory/Chest: No Respiratory Distress, Lungs Clear, Normal Breath Sounds, Other (Kussmaul breathing) Cardiovascular: Regular Rate, Rhythm, No Murmur GI/Abdominal: Normal Bowel Sounds, Soft, Non-Tender, No Distention Back Exam: Full Range of Motion Extremities: Normal Range of Motion Neurological: Alert, Normal Cognition, No Motor/Sensory Deficits Skin Exam: Warm, Dry, Intact Course - Vital Signs Last Recorded V/S: Last Vital Signs Temp 36.3 C 12/27/19 06:15 Pulse 99 12/27/19 06:15 Resp 24 H 12/27/19 06:15 BP 174/79 H 12/27/19 06:15 Pulse Ox 100 12/27/19 06:15 - Orders/Labs/Meds Orders: Active Orders 24 hr Category Date Time Status Accu Check [Blood Glucose Check, Bedside] [RC] Q1HR Care 12/27/19 06:46 Ordered Abdomen Pelvis wo Cont [CT] Stat Exams 12/27/19 06:42 Ordered BLOOD GAS VENOUS [BG] Stat Lab 12/27/19 06:35 Ordered CULTURE BLOOD [BC] Urgent Lab 12/27/19 06:41 Ordered CULTURE BLOOD [BC] Urgent Lab 12/27/19 06:41 Ordered LACTIC ACID [CHEM] Stat Lab 12/27/19 06:41 Ordered UA W/MICROSCOPIC [URIN] Stat Lab 12/27/19 06:22 Ordered Insulin Regular, Human [HumuLIN R] 100 unit Med 12/27/19 06:39 Ordered Sodium Chloride 0.9% [Normal Saline] 99 ml IV NOW Sodium Chloride 0.9% [Normal Saline] 1,000 ml Med 12/27/19 06:22 Active IV .BOLUS Sodium Chloride 0.9% [Normal Saline] 1,000 ml Med 12/27/19 06:40 Ordered IV .BOLUS Sodium Chloride 0.9% [Saline Flush] Med 12/27/19 06:22 Active 10 ml FLUSH ASDIRECTED PRN Blood Culture x2 Reflex Set [OM.PC] Urgent Oth 12/27/19 06:41 Ordered Saline Lock Insert [OM.PC] Routine Oth 12/27/19 06:22 Ordered Medication Orders Sodium Chloride (Normal Saline) 1,000 mls @ 999 mls/hr IV .BOLUS ONE Stop: 12/27/19 07:22 Last Admin: 12/27/19 06:30 Dose: 999 mls/hr Insulin Human Regular 100 unit (/ Sodium Chloride) 100 mls @ 5 mls/hr IV NOW STA Stop: 12/28/19 02:38 Sodium Chloride (Normal Saline) 1,000 mls @ 999 mls/hr IV .BOLUS ONE Stop: 12/27/19 07:40 Sodium Chloride (Saline Flush) 10 ml FLUSH ASDIRECTED PRN PRN Reason: Keep Vein Open Labs: Laboratory Tests 12/27/19 12/27/19 12/27/19 Range/Units 06:10 06:10 06:10 WBC 22.9 H (4.5-12.0) X10-3/uL RBC 5.57 (4.30-5.75) x10(6)uL Hgb 16.5 (13.5-17.8) g/dL Hct 50.5 (30.0-51.3) % MCV 90.7 (80-96) fL MCH 29.6 (27.7-33.6) pg MCHC 32.6 (32.2-35.4) g/dL RDW 12.9 (11.5-15.5) % Plt Count 249 (125-369) X10(3)uL MPV 8.9 (7.4-10.4) fL Add Manual Diff Yes Neutrophils % (Manual) 90 H (46-82) % Band Neutrophils % 7 H (0-6) % Lymphocytes % (Manual) 1 L (13-37) % Monocytes % (Manual) 2 L (4-12) % Sodium 123 L (135-145) mmol/L Potassium 5.5 H (3.5-5.3) mmol/L Chloride 85 L* (100-110) mmol/L Carbon Dioxide < 5 L* (21-32) mmol/L BUN 32 H (7-18) mg/dL Creatinine 2.1 H* (0.70-1.30) mg/dL Est Cr Clr Drug Dosing TNP Estimated GFR (MDRD) 33 L (>60) BUN/Creatinine Ratio 15.2 (9-20) Glucose 704 H* (80-116) mg/dL Calcium 8.8 (8.6-10.2) mg/dL Total Bilirubin 0.7 (0.1-1.3) mg/dL AST 20 D (5-25) IU/L ALT 36 (12-36) U/L Alkaline Phosphatase 111 (56-112) IU/L Total Protein 8.3 H (6.0-8.0) g/dL Albumin 3.8 (3.5-5.2) g/dL Globulin 4.5 g/dL Albumin/Globulin Ratio 0.8 Lipase 66 L (73-393) U/L Meds: Medications Generic Name Dose Route Start Last Admin Trade Name Freq PRN Reason Stop Dose Admin Sodium Chloride 1,000 mls @ 999 mls/hr 12/27/19 06:22 12/27/19 06:30 Normal Saline IV 12/27/19 07:22 999 mls/hr .BOLUS ONE Administration Insulin Human Regular 100 unit 100 mls @ 5 mls/hr 12/27/19 06:39 / Sodium Chloride IV 12/28/19 02:38 NOW STA 5 UNIT/HR Sodium Chloride 1,000 mls @ 999 mls/hr 12/27/19 06:40 Normal Saline IV 12/27/19 07:40 .BOLUS ONE Sodium Chloride 10 ml 12/27/19 06:22 Saline Flush FLUSH ASDIRECTED PRN Keep Vein Open Discontinued Medications Generic Name Dose Route Start Last Admin Trade Name Freq PRN Reason Stop Dose Admin Insulin Human Regular 5 unit 12/27/19 06:36 12/27/19 06:40 Humulin R IV 12/27/19 06:37 5 units ONETIME ONE Administration - Re-Assessments/Exams Free Text/Narrative Re-Assessment/Exam: 12/27/19 06:58 Patient care transferred to Dr. Kidd @0700 Departure - Departure Time of Disposition: 06:58 Disposition: Still A Patient 30 Clinical Impression: DKA (diabetic ketoacidoses) Qualifiers: Diabetes mellitus type: other specified (including JOANNA) Diabetes mellitus complication detail: without coma Qualified Code(s): E13.10 - Other specified diabetes mellitus with ketoacidosis without coma - Discharge Information Referrals: PCP,None [Primary Care Provider] - Sepsis Event Note - Evaluation Sepsis Screening Result: No Definite Risk - Focused Exam Vital Signs: Vital Signs Temp Pulse Resp BP Pulse Ox 12/27/19 06:15 36.3 C 99 24 H 174/79 H 100 Date Exam was Performed: 12/27/19 Time Exam was Performed: 06:47 - My Orders Last 24 Hours: My Active Orders 12/27/19 06:22 UA W/MICROSCOPIC [URIN] Stat Sodium Chloride 0.9% [Normal Saline] 1,000 ml IV .BOLUS Sodium Chloride 0.9% [Saline Flush] 10 ml FLUSH ASDIRECTED PRN Saline Lock Insert [OM.PC] Routine 12/27/19 06:35 BLOOD GAS VENOUS [BG] Stat 12/27/19 06:39 Insulin Regular, Human [HumuLIN R] 100 unit Sodium Chloride 0.9% [Normal Saline] 99 ml IV NOW 12/27/19 06:40 Sodium Chloride 0.9% [Normal Saline] 1,000 ml IV .BOLUS 12/27/19 06:41 CULTURE BLOOD [BC] Urgent CULTURE BLOOD [BC] Urgent LACTIC ACID [CHEM] Stat Blood Culture x2 Reflex Set [OM.PC] Urgent 12/27/19 06:42 Abdomen Pelvis wo Cont [CT] Stat 12/27/19 06:46 Accu Check [Blood Glucose Check, Bedside] [RC] Q1HR - Assessment/Plan Last 24 Hours: My Active Orders 12/27/19 06:22 UA W/MICROSCOPIC [URIN] Stat Sodium Chloride 0.9% [Normal Saline] 1,000 ml IV .BOLUS Sodium Chloride 0.9% [Saline Flush] 10 ml FLUSH ASDIRECTED PRN Saline Lock Insert [OM.PC] Routine 12/27/19 06:35 BLOOD GAS VENOUS [BG] Stat 12/27/19 06:39 Insulin Regular, Human [HumuLIN R] 100 unit Sodium Chloride 0.9% [Normal Saline] 99 ml IV NOW 12/27/19 06:40 Sodium Chloride 0.9% [Normal Saline] 1,000 ml IV .BOLUS 12/27/19 06:41 CULTURE BLOOD [BC] Urgent CULTURE BLOOD [BC] Urgent LACTIC ACID [CHEM] Stat Blood Culture x2 Reflex Set [OM.PC] Urgent 12/27/19 06:42 Abdomen Pelvis wo Cont [CT] Stat 12/27/19 06:46 Accu Check [Blood Glucose Check, Bedside] [RC] Q1HR
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
[2019-12-27] MEDS ORDERED: Sodium Chloride 0.9% 1,000 ML IV SCH (09:45)
[2019-12-27 09:57] VITALS: BP 138/81
== END 2019-12-27 09:38 | disposition critical access hospital (66) ==
LOC: FB.ED 06:09
DX: E11.10 Type 2 diabetes mellitus with ketoacidosis without coma (principal); F17.210 Nicotine dependence, cigarettes, uncomplicated; Z79.4 Long term (current) use of insulin
CPT/HCPCS: 36415; 80053; 81001; 82803; 82962; 83605; 83690; 84484; 85025; 86140; 87040; 93005; 96365; 96366; 96375; 99285; J1815; J7030; J7050